=== PATIENT | male | born 1980 | race Caucasian/White ===

== ENCOUNTER 2021-01-04 16:54 | Emergency (ER) | payer SELFPAY ==
[~2021-01-04] VITALS: Ht 188 cm; Wt 143.2 kg
[2021-01-04] MEDS ORDERED: ketorolac tromethamine 15mg/ml inj. IM ONE (18:30)
[2021-01-04] MEDS ORDERED: cyclobenzaprine 10mg tablet PO ONE (18:45)
[2021-01-04] MEDS ORDERED: IBUP-1984 PO (19:19)
[2021-01-04] MEDS ORDERED: CYCL-1 PO (19:19)
[2021-01-04 20:03] VITALS: BP 139/95
== END 2021-01-04 20:02 | disposition home or self-care (01) ==
LOC: ER 16:55
DX: S00.83XA Contusion of other part of head, initial encounter (principal); M54.2 Cervicalgia; M25.552 Pain in left hip; M25.512 Pain in left shoulder; V49.59XA Passenger injured in collision with other motor vehicles in traffic accident, initial encounter; Y93.89 Activity, other specified; Y92.413 State road as the place of occurrence of the external cause; Y99.9 Unspecified external cause status
CPT/HCPCS: 70450; 72125; 73502; 96372; 99285; J1885

== ENCOUNTER 2021-01-11 18:12 | Inpatient (IN) | payer MEDICAID, OTHER ==
[~2021-01-11] VITALS: Ht 188 cm; Wt 136.4 kg
[~2021-01-11 18:12] MED LIST: CYCL-1 PO
[2021-01-11] MEDS ORDERED: normal saline 1000ML IV soln IVB ONE ×2 (18:35→22:15)
[2021-01-11] MEDS ORDERED: aspirin 81mg tab.chew PO ONE (18:35)
[2021-01-11] MEDS ORDERED: LORazepam 1 MG tablet PO ONE (18:40)
[2021-01-11] MEDS ORDERED: magnesium 2GM in 50ml NS 50 ML IV ONE (18:40)
[2021-01-11] MEDS ORDERED: LORazepam 2 mg/ml vial IV ONE ×2 (18:40→19:10)
--- NOTE | 2021-01-11 19:12 | NUR ---
patient was given a total of 2mg IV from one bottle ( original order was for 1 mg but md mcnally changed his mine and 2mg was given. Witness by second nurse Lilliam PARSON Ativan not given.
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
[2021-01-11 19:13] LABS: BASOPHILS # (AUTO) 0.1 X10'3 (0-0.2); BASOPHILS % (AUTO) 0.5 % (0-1); EOSINOPHILS % (AUTO) 0.1 % (0-6); HEMATOCRIT 35.7 % (42.0-52.0); HEMOGLOBIN 12.1 g/dl (14.0-17.9); LYMPHOCYTES # (AUTO) 1.7 X10'3 (1.1-4.8); LYMPHOCYTES % (AUTO) 9.3 % (21-51); MEAN CORPUSCULAR HEMOGLOBIN 29.4 PG (27.0-31.0); MEAN CORPUSCULAR HGB CONC 33.8 g/dL (33.0-36.5); MEAN PLATELET VOLUME 9.3 FL (7.4-10.4); MONOCYTES # (AUTO) 0.9 X10'3 (0-0.9); MONOCYTES % (AUTO) 5.2 % (2-12); NEUTROPHILS # (AUTO) 15.1 X10'3 (1.8-7.7); NEUTROPHILS % (AUTO) 84.9 % (42-75); PLATELET COUNT 292 X10'3 (140-440); RED CELL DISTRIBUTION WIDTH 15.3 % (11.5-14.5); WHITE BLOOD COUNT 17.7 X10'3 (4.5-11.0)
[2021-01-11 19:15] LABS: PARTIAL THROMBOPLASTIN TIME 22 SECONDS (22-32)
[2021-01-11 19:22] LABS: ALANINE AMINOTRANSFERASE 125 U/L (12-78); ALBUMIN 3.6 G/DL (3.4-5.0); ALBUMIN/GLOBULIN RATIO 1.2 (1.1-1.5); ALKALINE PHOSPHATASE 75 IU/L (46-116); ANION GAP 12 (8-16); ASPARTATE AMINO TRANSFERASE 47 U/L (10-37); BILIRUBIN,TOTAL 1.7 MG/DL (0.1-1.0); BLOOD UREA NITROGEN 39 MG/DL (7-18); BUN/CREATININE RATIO 35.1 (5.4-32.0); CALCIUM 8.2 MG/DL (8.5-10.1); CHLORIDE 105 MMOL/L (99-107); CREATININE 1.11 MG/DL (0.60-1.10); GLUCOSE 153 MG/DL (70-104); POTASSIUM 4.3 MMOL/L (3.5-5.1); SODIUM 141 MMOL/L (135-145); TOTAL CARBON DIOXIDE 24.1 MMOL/L (24-32); TOTAL PROTEIN 6.7 G/DL (6.4-8.2); eGFR 74 ML/MIN
[2021-01-11 19:31] LABS: ETHANOL < 0.010 GM/DL (0.0-0.010); MAGNESIUM 1.5 MG/DL (1.5-2.4)
[2021-01-11] MEDS ORDERED: nitroGLYCERIN 0.4mg/hour patch TD ONE (21:05)
--- NOTE | 2021-01-11 21:26 | NUR ---
MD NOTIFIED X2 ABOUT PATIENT PAIN, NITRO PATCH ORDERED AND GIVEN.
[2021-01-11] MEDS ORDERED: ondansetron/PF 4mg/2ml inj IV PRN (22:10)
[2021-01-11] MEDS ORDERED: mag hydrox/Alum hydrox/simeth 30ml oral suspension PO PRN ×2 (22:10→23:55)
[2021-01-11] MEDS ORDERED: potassium Cl 20 mEq SR tablet PO PRN ×2 (22:10)
[2021-01-11] MEDS ORDERED: magnesium 2GM in 50ml NS 50 ML IV PRN (22:10)
[2021-01-11] MEDS ORDERED: acetaminophen 325mg tablet PO PRN ×2 (22:10)
[2021-01-11] MEDS ORDERED: magnesium 4gm in 100ml NS 100 ML IV PRN (22:10)
[2021-01-11] MEDS ORDERED: HYDROcodone/acetaminophen 5mg/325mg tablet PO PRN (22:10)
[2021-01-11] MEDS ORDERED: magnesium Cl slow-release 64mg tablet PO PRN (22:10)
[2021-01-11] MEDS ORDERED: magnesium hydroxide 30ml (MOM) UD suspension PO PRN (22:10)
[2021-01-11] MEDS ORDERED: potassium Cl 40MEQ/1/2NS 520ml 520 ML IV PRN ×2 (22:10)
[2021-01-11] MEDS: morphine 2 MG/ML inj. syringe IV PRN (22:29)
[2021-01-11] MEDS ORDERED: iohexol 350MG/ML 100ml bottle IV ONE (22:53)
[2021-01-11 23:08] LABS: CLARITY,URINE CLEAR (Clear); COLOR,URINE YELLOW (Yellow); GLUCOSE, URINE NEGATIVE (Neg); KETONES,URINE NEGATIVE (Neg); LEUKOCYTE ESTERASE ,URINE NEGATIVE (Neg); NITRITES, URINE NEGATIVE (Neg); OCCULT BLOOD,URINE NEGATIVE (Neg); PROTEIN,URINE NEGATIVE (Neg); UROBILINOGEN,URINE 0.2 E.U/dL (0.2-1.0)
[2021-01-11] MEDS ORDERED: nicotine 14mg patch - 24hr TD ONE (23:10)
[2021-01-11] MEDS ORDERED: thiamine inj. 100 MG in normal saline 100ml IV soln 100 ML IV ONE ×2 (23:10→23:55)
[2021-01-11 23:16] LABS: UA COLLECTION TYPE URINAL; URINE AMPHETAMINE SCREEN NEGATIVE (Neg); URINE BARBITUATE SCREEN NEGATIVE (Neg); URINE BENZODIAZEPINES SCREEN NEGATIVE (Neg); URINE CANNABINOID SCREEN NEGATIVE (Neg); URINE COCAINE SCREEN NEGATIVE (Neg); URINE METHADONE SCREEN NEGATIVE (Neg); URINE OPIATE SCREEN NEGATIVE (Neg); URINE PHENCYCLIDINE SCREEN NEGATIVE (Neg)
[2021-01-11] MEDS ORDERED: loperamide 2mg capsule PO ONE (23:55)
[2021-01-11] MEDS ORDERED: dicyclomine 10 MG capsule PO PRN (23:55)
[2021-01-11] MEDS ORDERED: cloNIDine 0.1 mg tablet PO PRN (23:55)
[2021-01-11] MEDS ORDERED: loperamide 2mg capsule PO PRN (23:55)
[2021-01-11] MEDS ORDERED: LORazepam 1 MG tablet PO PRN (23:55)
[2021-01-11] MEDS ORDERED: haloperidol 5mg tablet PO PRN ×2 (23:55)
[2021-01-11] MEDS ORDERED: cloNIDine 0.1 MG/24 HOUR patch (7 day patch) TD SCH (23:55)
[2021-01-11] MEDS ORDERED: cyclobenzaprine 10mg tablet PO PRN (23:55)
[2021-01-11] MEDS ORDERED: haloperidol lactate 5mg/ml inj IM PRN ×3 (23:55)
[2021-01-11] MEDS ORDERED: LORazepam 2 mg/ml vial IV PRN ×2 (23:55)
[2021-01-12] MEDS: LORazepam 2 mg/ml vial IV PRN ×5 (00:27→10:41)
[2021-01-12] MEDS: HYDROcodone/acetaminophen 10/325mg tab PO PRN ×3 (00:28→10:41)
[2021-01-12 01:27] LABS: ALANINE AMINOTRANSFERASE 96 U/L (12-78); ALBUMIN/GLOBULIN RATIO 1.2 (1.1-1.5); ALKALINE PHOSPHATASE 64 IU/L (46-116); AMYLASE 23 U/L (25-115); ANION GAP 10 (8-16); ASPARTATE AMINO TRANSFERASE 35 U/L (10-37); BILIRUBIN,TOTAL 1.1 MG/DL (0.1-1.0); BLOOD UREA NITROGEN 35 MG/DL (7-18); CALCIUM 7.2 MG/DL (8.5-10.1); CHLORIDE 109 MMOL/L (99-107); CREATININE 0.92 MG/DL (0.60-1.10); GLUCOSE 119 MG/DL (70-104); LIPASE < 50 U/L (73-393); MAGNESIUM 1.8 MG/DL (1.5-2.4); PHOSPHORUS 3.4 MG/DL (2.3-4.5); POTASSIUM 3.8 MMOL/L (3.5-5.1); SODIUM 141 MMOL/L (135-145); TOTAL CARBON DIOXIDE 22.5 MMOL/L (24-32); TOTAL PROTEIN 5.5 G/DL (6.4-8.2); eGFR > 90 ML/MIN
[2021-01-12 01:28] LABS: BASOPHILS # (AUTO) 0.1 X10'3 (0-0.2); BASOPHILS % (AUTO) 0.5 % (0-1); EOSINOPHILS % (AUTO) 0.3 % (0-6); HEMATOCRIT 28.2 % (42.0-52.0); HEMOGLOBIN 9.5 g/dl (14.0-17.9); LYMPHOCYTES # (AUTO) 2.3 X10'3 (1.1-4.8); LYMPHOCYTES % (AUTO) 18.9 % (21-51); MEAN CORPUSCULAR HEMOGLOBIN 28.6 PG (27.0-31.0); MEAN CORPUSCULAR HGB CONC 33.6 g/dL (33.0-36.5); MEAN CORPUSCULAR VOLUME 85.3 FL (78-98); MEAN PLATELET VOLUME 9.1 FL (7.4-10.4); MONOCYTES # (AUTO) 0.8 X10'3 (0-0.9); MONOCYTES % (AUTO) 6.8 % (2-12); NEUTROPHILS % (AUTO) 73.5 % (42-75); PLATELET COUNT 226 X10'3 (140-440); WHITE BLOOD COUNT 12.3 X10'3 (4.5-11.0)
[2021-01-12] MEDS: morphine 2 MG/ML inj. syringe IV PRN (02:31)
--- NOTE | 2021-01-12 03:00 | NUR ---
patient had diarrhea, patient able to walk to restroom with standby assist.
--- NOTE | 2021-01-12 03:51 | NUR ---
patient actively in DT, med aware, see mar.
--- NOTE | 2021-01-12 05:38 | NUR ---
patient highly medicated, unable to recall what meds he takes and dosages.
[2021-01-12] MEDS ORDERED: pantoprazole 40mg Tablet.DR PO SCH (07:30)
[2021-01-12] MEDS ORDERED: enoxaparin 40mg/0.4ml syringe SUBCUT SCH (08:00)
[2021-01-12] MEDS ORDERED: nicotine 21mg patch - 24 hr TD SCH (08:00)
[2021-01-12] MEDS ORDERED: folic acid inj. 2 MG, thiamine inj. 100 MG, MVI, adult No.4 with vit. K 10 ML in dextro... IV SCH ×8 (08:00)
[2021-01-12] MEDS ORDERED: atenolol 50mg tablet PO SCH (08:00)
[2021-01-12] MEDS ORDERED: K and/or MAG REPLACEMENT MC SCH (08:00)
[2021-01-12] MEDS ORDERED: thiamine 100mg tablet PO SCH (08:00)
[2021-01-12] MEDS ORDERED: multivitamins, therapeutics tablet PO SCH (08:00)
[2021-01-12] MEDS ORDERED: folic acid 1mg tablet PO SCH (08:00)
--- NOTE | 2021-01-12 11:45 | NUR ---
PATIENT AMBULATED TO BATHROOM UNASSISTED. REPORTS BM.
[2021-01-12 13:09] VITALS: BP 131/86
[2021-01-13] MEDS ORDERED: NO HOME MEDS (14:53)
[2021-01-13] MEDS ORDERED: LORazepam 2 mg/ml vial IV PRN (23:55)
[2021-01-13] MEDS ORDERED: LORazepam 1 MG tablet PO PRN (23:55)
[2021-01-15] MEDS ORDERED: MULT-25 PO (16:57)
[2021-01-15] MEDS ORDERED: PANT40TA54 PO (16:57)
[2021-01-15] MEDS ORDERED: NICO-687 TD (16:57)
[2021-01-15] MEDS ORDERED: folic acid tablet PO (16:57)
[2021-01-15] MEDS ORDERED: thiamine tablet PO (16:57)
[2021-01-15] MEDS ORDERED: FERR324T4 PO (17:14)
[2021-01-15] MEDS ORDERED: LORazepam 1 MG tablet PO PRN (23:55)
[2021-01-15] MEDS ORDERED: LORazepam 2 mg/ml vial IV PRN (23:55)
== END 2021-01-12 13:12 | disposition left against medical advice (07) | DRG 770 ==
LOC: ER 18:13 → ED HOLD 22:09 → UNDOADMIN 22:20
PROVIDERS: ADMIT Internal Medicine; ATTEND Internal Medicine
PROC: B32T1ZZ Computerized Tomography (CT Scan) of Left Pulmonary Artery using Low Osmolar Contrast (ICD-10-PCS; principal; 2021-01-11)
PROC: B3201ZZ Computerized Tomography (CT Scan) of Thoracic Aorta using Low Osmolar Contrast (ICD-10-PCS; 2021-01-11)
PROC: B32S1ZZ Computerized Tomography (CT Scan) of Right Pulmonary Artery using Low Osmolar Contrast (ICD-10-PCS; 2021-01-11)
DX: F10.239 Alcohol dependence with withdrawal, unspecified (principal); E66.01 Morbid (severe) obesity due to excess calories; R55 Syncope and collapse; R07.89 Other chest pain; Z53.29 Procedure and treatment not carried out because of patient's decision for other reasons; R00.0 Tachycardia, unspecified; F17.210 Nicotine dependence, cigarettes, uncomplicated; Z80.0 Family history of malignant neoplasm of digestive organs; Z82.3 Family history of stroke; Z68.38 Body mass index [BMI] 38.0-38.9, adult; Z90.49 Acquired absence of other specified parts of digestive tract; Z79.899 Other long term (current) drug therapy
CPT/HCPCS: 36415; 71045; 71275; 80053; 80305; 80320; 81003; 82150; 82948; 83690; 83735; 84100; 84443; 84484; 85025; 85610; 85730; 87081; 93005; 93306; 96374; 96375; 96376; 99285; G0378; J1650; J2060; J2270; J2405; J3411; J3475; J7030; Q9967

== ENCOUNTER 2021-01-16 15:47 | Emergency (ER) | payer MEDICAID ==
[~2021-01-16] VITALS: Ht 188 cm; Wt 134.0 kg
[~2021-01-16 15:47] MED LIST changes: -CYCL-1 PO; +FERR324T4 PO; +MULT-25 PO; +NICO-687 TD; +PANT40TA54 PO; +folic acid tablet PO; +thiamine tablet PO
--- NOTE | 2021-01-16 16:17 | NUR ---
DR DUTTON EVALUATED PT
[2021-01-16 16:59] LABS: BASOPHILS % (AUTO) 0.3 % (0-1); EOSINOPHILS # (AUTO) 0.1 X10'3 (0-0.9); EOSINOPHILS % (AUTO) 0.9 % (0-6); HEMATOCRIT 27.4 % (42.0-52.0); HEMOGLOBIN 9.3 g/dl (14.0-17.9); LYMPHOCYTES # (AUTO) 0.8 X10'3 (1.1-4.8); LYMPHOCYTES % (AUTO) 7.9 % (21-51); MEAN CORPUSCULAR HEMOGLOBIN 31.1 PG (27.0-31.0); MEAN CORPUSCULAR VOLUME 91.5 FL (78-98); MONOCYTES # (AUTO) 0.6 X10'3 (0-0.9); NEUTROPHILS # (AUTO) 8.4 X10'3 (1.8-7.7); NEUTROPHILS % (AUTO) 84.9 % (42-75); PLATELET COUNT 236 X10'3 (140-440); RED BLOOD COUNT 2.99 X10'6 (4.70-6.10); RED CELL DISTRIBUTION WIDTH 16.1 % (11.5-14.5); WHITE BLOOD COUNT 9.9 X10'3 (4.5-11.0)
[2021-01-16 17:11] LABS: PARTIAL THROMBOPLASTIN TIME 22 SECONDS (22-32)
[2021-01-16 17:12] LABS: ALANINE AMINOTRANSFERASE 45 U/L (12-78); ALBUMIN 3.2 G/DL (3.4-5.0); ALKALINE PHOSPHATASE 55 IU/L (46-116); ANION GAP 10 (8-16); ASPARTATE AMINO TRANSFERASE 32 U/L (10-37); BILIRUBIN,TOTAL 0.3 MG/DL (0.1-1.0); BLOOD UREA NITROGEN 14 MG/DL (7-18); BUN/CREATININE RATIO 15.4 (5.4-32.0); CALCIUM 8.2 MG/DL (8.5-10.1); CHLORIDE 105 MMOL/L (99-107); CREATININE 0.91 MG/DL (0.60-1.10); GLUCOSE 95 MG/DL (70-104); POTASSIUM 3.8 MMOL/L (3.5-5.1); SODIUM 141 MMOL/L (135-145); TOTAL CARBON DIOXIDE 25.9 MMOL/L (24-32); TOTAL PROTEIN 6.5 G/DL (6.4-8.2); eGFR > 90 ML/MIN
[2021-01-16] MEDS ORDERED: ondansetron/PF 4mg/2ml inj IV ONE (18:50)
[2021-01-16] MEDS ORDERED: normal saline 1000ML IV soln IVB ONE (18:50)
[2021-01-16] MEDS ORDERED: morphine 4 MG/ML inj SYRINge IV PRN (18:50)
[2021-01-16] MEDS ORDERED: sucralfate 1gm/10ml UD suspension PO STA (19:36)
[2021-01-16] MEDS ORDERED: LIDOcaine Viscous 15ml cup MM ONE (19:40)
[2021-01-16] MEDS ORDERED: mag hydrox/Alum hydrox/simeth 30ml oral suspension PO ONE (19:40)
[2021-01-16] MEDS ORDERED: DEXL60CA3 PO (19:43)
[2021-01-16 19:53] LABS: CLARITY,URINE CLEAR (Clear); COLOR,URINE YELLOW (Yellow); GLUCOSE, URINE NEGATIVE (Neg); KETONES,URINE NEGATIVE (Neg); LEUKOCYTE ESTERASE ,URINE NEGATIVE (Neg); NITRITES, URINE NEGATIVE (Neg); OCCULT BLOOD,URINE NEGATIVE (Neg); PROTEIN,URINE NEGATIVE (Neg); UROBILINOGEN,URINE 0.2 E.U/dL (0.2-1.0)
[2021-01-16 20:01] LABS: UA COLLECTION TYPE CLN CATCH MIDSTREAM
--- NOTE | 2021-01-16 20:18 | NUR ---
PATIENT AND RECEIVED DISCHARGE INSTUCTIONS/ PRESCRIPTIONS AND ACKNOWLEDGED UNDERSTANDING. PATIENT STATES THAT HE FEELS ALOT BETTER. VS WNL.
[2021-01-16 20:19] VITALS: BP 122/97
== END 2021-01-16 20:19 | disposition home or self-care (01) ==
LOC: ER 15:48
DX: R10.10 Upper abdominal pain, unspecified (principal); R42 Dizziness and giddiness; R53.1 Weakness; R53.83 Other fatigue; M54.9 Dorsalgia, unspecified; K74.60 Unspecified cirrhosis of liver; Z90.49 Acquired absence of other specified parts of digestive tract; F12.90 Cannabis use, unspecified, uncomplicated; F14.90 Cocaine use, unspecified, uncomplicated; Z98.84 Bariatric surgery status; Z72.89 Other problems related to lifestyle; Z79.899 Other long term (current) drug therapy
CPT/HCPCS: 36415; 80053; 81003; 85025; 85610; 85730; 86885; 86900; 86901; 93005; 96361; 96374; 96375; 99284; J2270; J2405; J7030

== ENCOUNTER 2021-03-20 18:10 | Emergency (ER) | payer MEDICAID ==
[~2021-03-20] VITALS: Ht 188 cm; Wt 134.1 kg
[~2021-03-20 18:10] MED LIST changes: +DEXL60CA3 PO
[2021-03-20] MEDS ORDERED: LORazepam 1 MG tablet PO ONE (20:35)
[2021-03-20] MEDS ORDERED: normal saline 1000ML IV soln IVB ONE (20:35)
[2021-03-20] MEDS ORDERED: ondansetron 4mg rapidly disintigrating tab PO ONE (20:35)
[2021-03-20] MEDS ORDERED: acetaminophen 325mg tablet PO ONE (20:35)
[2021-03-20 21:12] LABS: BASOPHILS # (AUTO) 0.1 X10'3 (0-0.2); EOSINOPHILS # (AUTO) 0.1 X10'3 (0-0.9); EOSINOPHILS % (AUTO) 0.7 % (0-6); HEMATOCRIT 34.3 % (42.0-52.0); HEMOGLOBIN 11.4 g/dl (14.0-17.9); LYMPHOCYTES # (AUTO) 1.3 X10'3 (1.1-4.8); LYMPHOCYTES % (AUTO) 14.9 % (21-51); MEAN CORPUSCULAR HEMOGLOBIN 23.9 PG (27.0-31.0); MEAN CORPUSCULAR HGB CONC 33.4 g/dL (33.0-36.5); MEAN CORPUSCULAR VOLUME 71.6 FL (78-98); MEAN PLATELET VOLUME 8.1 FL (7.4-10.4); MONOCYTES # (AUTO) 0.7 X10'3 (0-0.9); MONOCYTES % (AUTO) 8.8 % (2-12); NEUTROPHILS # (AUTO) 6.3 X10'3 (1.8-7.7); NEUTROPHILS % (AUTO) 74.6 % (42-75); PLATELET COUNT 315 X10'3 (140-440); RED BLOOD COUNT 4.78 X10'6 (4.70-6.10); RED CELL DISTRIBUTION WIDTH 21.7 % (11.5-14.5); WHITE BLOOD COUNT 8.4 X10'3 (4.5-11.0)
[2021-03-20 21:19] LABS: PARTIAL THROMBOPLASTIN TIME 27 SECONDS (22-32)
[2021-03-20 21:50] LABS: ALANINE AMINOTRANSFERASE 91 U/L (12-78); ALBUMIN 3.8 G/DL (3.4-5.0); ALBUMIN/GLOBULIN RATIO 1.1 (1.1-1.5); ALKALINE PHOSPHATASE 86 IU/L (46-116); ANION GAP 15 (8-16); ASPARTATE AMINO TRANSFERASE 123 U/L (10-37); BILIRUBIN,TOTAL 0.3 MG/DL (0.1-1.0); BLOOD UREA NITROGEN 27 MG/DL (7-18); BUN/CREATININE RATIO 22.7 (5.4-32.0); CALCIUM 8.6 MG/DL (8.5-10.1); CHLORIDE 105 MMOL/L (99-107); CREATININE 1.19 MG/DL (0.60-1.10); ETHANOL 0.096 GM/DL (0.0-0.010); GLUCOSE 114 MG/DL (70-104); POTASSIUM 4.4 MMOL/L (3.5-5.1); SODIUM 142 MMOL/L (135-145); TOTAL CARBON DIOXIDE 22.4 MMOL/L (24-32); TOTAL PROTEIN 7.3 G/DL (6.4-8.2); eGFR 68 ML/MIN
[2021-03-20 22:05] LABS: ANISOCYTOSIS 3+; MICROCYTOSIS 1+; PLATELET ESTIMATE NORMAL
[2021-03-20 22:31] LABS: AMYLASE 43 U/L (25-115)
[2021-03-20] MEDS ORDERED: LORazepam 2 mg/ml vial IV ONE ×2 (22:35→23:50)
[2021-03-20] MEDS ORDERED: GABA-534 PO (22:56)
[2021-03-20] MEDS ORDERED: ONDA4TAB12 PO (23:27)
[2021-03-21 00:05] VITALS: BP 119/78
== END 2021-03-21 00:06 | disposition home or self-care (01) ==
LOC: ER 18:11
DX: F10.239 Alcohol dependence with withdrawal, unspecified (principal); R11.2 Nausea with vomiting, unspecified; R19.7 Diarrhea, unspecified; R10.11 Right upper quadrant pain; F17.200 Nicotine dependence, unspecified, uncomplicated; F12.90 Cannabis use, unspecified, uncomplicated; F14.90 Cocaine use, unspecified, uncomplicated; Z90.49 Acquired absence of other specified parts of digestive tract; Z98.890 Other specified postprocedural states; Z72.89 Other problems related to lifestyle; Z79.899 Other long term (current) drug therapy; Y90.0 Blood alcohol level of less than 20 mg/100 ml
CPT/HCPCS: 36415; 80053; 80320; 82150; 85008; 85025; 85610; 85730; 93005; 96361; 96374; 96376; 99285; J2060; J7030

== ENCOUNTER 2021-03-27 13:53 | Emergency (ER) | payer MEDICAID ==
[~2021-03-27] VITALS: Ht 188 cm; Wt 136.4 kg
[~2021-03-27 13:53] MED LIST changes: +GABA-534 PO; +ONDA4TAB12 PO
[2021-03-27] MEDS ORDERED: ondansetron 4mg rapidly disintigrating tab PO ONE (15:40)
[2021-03-27] MEDS ORDERED: ringers solution, lactated 1000ml IV soln IV ONE ×3 (15:40→19:10)
[2021-03-27 15:41] LABS: BASOPHILS # (AUTO) 0.1 X10'3 (0-0.2); MONOCYTES # (AUTO) 0.6 X10'3 (0-0.9)
[2021-03-27 15:44] LABS: EOSINOPHILS % (AUTO) 0.4 % (0-6); HEMATOCRIT 40.5 % (42.0-52.0); HEMOGLOBIN 13.1 g/dl (14.0-17.9); LYMPHOCYTES % (AUTO) 12.2 % (21-51); MEAN CORPUSCULAR HEMOGLOBIN 23.2 PG (27.0-31.0); MEAN CORPUSCULAR HGB CONC 32.3 g/dL (33.0-36.5); MEAN CORPUSCULAR VOLUME 71.9 FL (78-98); MEAN PLATELET VOLUME 8.5 FL (7.4-10.4); MONOCYTES % (AUTO) 7.6 % (2-12); NEUTROPHILS # (AUTO) 6.3 X10'3 (1.8-7.7); NEUTROPHILS % (AUTO) 78.8 % (42-75); PLATELET COUNT 390 X10'3 (140-440); RED BLOOD COUNT 5.64 X10'6 (4.70-6.10); WHITE BLOOD COUNT 7.9 X10'3 (4.5-11.0)
[2021-03-27 15:49] LABS: ALANINE AMINOTRANSFERASE 308 U/L (12-78); ALBUMIN 4.2 G/DL (3.4-5.0); ALKALINE PHOSPHATASE 96 IU/L (46-116); ANION GAP 15 (8-16); ASPARTATE AMINO TRANSFERASE 382 U/L (10-37); BILIRUBIN,TOTAL 0.9 MG/DL (0.1-1.0); BLOOD UREA NITROGEN 25 MG/DL (7-18); BUN/CREATININE RATIO 19.1 (5.4-32.0); CALCIUM 8.9 MG/DL (8.5-10.1); CHLORIDE 102 MMOL/L (99-107); CREATININE 1.31 MG/DL (0.60-1.10); GLUCOSE 121 MG/DL (70-104); LIPASE 76 U/L (73-393); MAGNESIUM 1.7 MG/DL (1.5-2.4); SODIUM 139 MMOL/L (135-145); TOTAL CARBON DIOXIDE 22.5 MMOL/L (24-32); TOTAL PROTEIN 8.4 G/DL (6.4-8.2); eGFR 61 ML/MIN
[2021-03-27 15:51] LABS: POTASSIUM 4.7 MMOL/L (3.5-5.1)
[2021-03-27] MEDS ORDERED: LORazepam 2 mg/ml vial IV ONE ×4 (15:55→19:55)
[2021-03-27 17:07] LABS: PLATELET ESTIMATE NORMAL
[2021-03-27 17:08] LABS: ANISOCYTOSIS 3+; HYPOCHROMASIA 1+; MICROCYTOSIS 1+
--- NOTE | 2021-03-27 17:55 | NUR ---
PATIENT REQUESTED FOR ADDITIONAL ATIVAN,MELANIA BISHOP MADE AWARE.
[2021-03-27] MEDS ORDERED: proCHLORperazine 10 MG/2 ml inj IV ONE (19:10)
[2021-03-27] MEDS ORDERED: GABA-534 PO (19:32)
[2021-03-27] MEDS ORDERED: ONDA8TAB13 PO (19:33)
[2021-03-27 21:02] VITALS: BP 119/85
== END 2021-03-27 21:05 | disposition home or self-care (01) ==
LOC: ER 13:53
DX: F10.239 Alcohol dependence with withdrawal, unspecified (principal); R42 Dizziness and giddiness; R11.0 Nausea; F12.90 Cannabis use, unspecified, uncomplicated; F14.90 Cocaine use, unspecified, uncomplicated; F19.90 Other psychoactive substance use, unspecified, uncomplicated; Z90.49 Acquired absence of other specified parts of digestive tract; Z72.89 Other problems related to lifestyle; Z98.890 Other specified postprocedural states; Z79.899 Other long term (current) drug therapy; Y90.9 Presence of alcohol in blood, level not specified
CPT/HCPCS: 36415; 80053; 83690; 83735; 85008; 85025; 96361; 96374; 96375; 96376; 99285; J0780; J2060; 93005; J7120

== ENCOUNTER 2021-04-26 08:22 | Emergency (ER) | payer MEDICAID ==
[~2021-04-26] VITALS: Ht 188 cm; Wt 140.9 kg
[~2021-04-26 08:22] MED LIST changes: +ONDA8TAB13 PO
[2021-04-26 09:46] LABS: CLARITY,URINE SLIGHTLY CLOUDY (Clear); COLOR,URINE YELLOW (Yellow); GLUCOSE, URINE NEGATIVE (Neg); KETONES,URINE NEGATIVE (Neg); LEUKOCYTE ESTERASE ,URINE NEGATIVE (Neg); NITRITES, URINE NEGATIVE (Neg); OCCULT BLOOD,URINE NEGATIVE (Neg); PROTEIN,URINE NEGATIVE (Neg); UA COLLECTION TYPE VOIDED; UROBILINOGEN,URINE 0.2 E.U/dL (0.2-1.0)
[2021-04-26 09:54] LABS: MUCUS STRANDS FEW /LPF (Neg); SQUAMOUS EPITHELIAL CELL,UR FEW /LPF (FEW)
[2021-04-26 09:56] LABS: BACTERIA,URINE FEW /HPF (Neg); RBC,URINE NONE SEEN /HPF (0-2); WBC,URINE 0-4 /HPF (0-4)
[2021-04-26 10:33] LABS: BASOPHILS # (AUTO) 0.1 X10'3 (0-0.2); BASOPHILS % (AUTO) 0.8 % (0-1); EOSINOPHILS # (AUTO) 0.1 X10'3 (0-0.9); EOSINOPHILS % (AUTO) 0.4 % (0-6); HEMATOCRIT 38.1 % (42.0-52.0); HEMOGLOBIN 12.1 g/dl (14.0-17.9); LYMPHOCYTES % (AUTO) 8.4 % (21-51); MEAN CORPUSCULAR HEMOGLOBIN 22.6 PG (27.0-31.0); MEAN CORPUSCULAR HGB CONC 31.8 g/dL (33.0-36.5); MEAN PLATELET VOLUME 8.9 FL (7.4-10.4); MONOCYTES # (AUTO) 0.8 X10'3 (0-0.9); MONOCYTES % (AUTO) 6.7 % (2-12); NEUTROPHILS # (AUTO) 9.9 X10'3 (1.8-7.7); NEUTROPHILS % (AUTO) 83.7 % (42-75); PLATELET COUNT 283 X10'3 (140-440); RED BLOOD COUNT 5.37 X10'6 (4.70-6.10); RED CELL DISTRIBUTION WIDTH 22.7 % (11.5-14.5); WHITE BLOOD COUNT 11.8 X10'3 (4.5-11.0)
[2021-04-26 10:44] LABS: ALANINE AMINOTRANSFERASE 267 U/L (12-78); ALBUMIN 4.3 G/DL (3.4-5.0); ALBUMIN/GLOBULIN RATIO 1.1 (1.1-1.5); ALKALINE PHOSPHATASE 130 IU/L (46-116); ANION GAP 15 (8-16); ASPARTATE AMINO TRANSFERASE 243 U/L (10-37); BILIRUBIN,TOTAL 1.4 MG/DL (0.1-1.0); BLOOD UREA NITROGEN 27 MG/DL (7-18); CALCIUM 9.1 MG/DL (8.5-10.1); CHLORIDE 99 MMOL/L (99-107); CREATININE 1.04 MG/DL (0.60-1.10); GLUCOSE 102 MG/DL (70-104); POTASSIUM 3.7 MMOL/L (3.5-5.1); SODIUM 134 MMOL/L (135-145); TOTAL CARBON DIOXIDE 20.1 MMOL/L (24-32); TOTAL PROTEIN 8.2 G/DL (6.4-8.2); eGFR 80 ML/MIN
[2021-04-26 10:48] LABS: AMYLASE 55 U/L (25-115); LIPASE 213 U/L (73-393)
[2021-04-26 11:49] LABS: HYPOCHROMASIA 1+; PLATELET ESTIMATE NORMAL; POLYCHROMASIA FEW
[2021-04-26 11:50] LABS: STOMATOCYTES 2+
[2021-04-26] MEDS ORDERED: normal saline 1000ML IV soln IVB ONE (14:15)
[2021-04-26] MEDS ORDERED: LORazepam 2 mg/ml vial IV ONE (14:15)
[2021-04-26] MEDS ORDERED: ondansetron/PF 4mg/2ml inj IV ONE (14:15)
[2021-04-26] MEDS ORDERED: famotidine/PF 10 mg/ml inj IV ONE (14:20)
[2021-04-26] MEDS ORDERED: morphine 4 MG/ML inj SYRINge IV ONE (14:20)
[2021-04-26 14:34] LABS: ETHANOL 0.034 GM/DL (0.0-0.010)
[2021-04-26] MEDS ORDERED: folic acid 1mg/0.2ml inj IV ONE (14:55)
[2021-04-26] MEDS ORDERED: thiamine 100mg/ml 2ml inj. IV ONE (14:55)
[2021-04-26] MEDS ORDERED: mag hydrox/Alum hydrox/simeth 30ml oral suspension PO ONE (15:05)
[2021-04-26] MEDS ORDERED: LIDOcaine Viscous 15ml cup MM ONE (15:05)
[2021-04-26] MEDS ORDERED: sucralfate 1gm/10ml UD suspension PO ONE (15:05)
[2021-04-26] MEDS ORDERED: sucralfate 1 gm tablet PO ONE (15:15)
[2021-04-26] MEDS ORDERED: PANT-47 PO (15:27)
[2021-04-26 17:45] VITALS: BP 166/101
== END 2021-04-26 17:40 | disposition home or self-care (01) ==
LOC: ER 08:23
DX: K29.20 Alcoholic gastritis without bleeding (principal)
CPT/HCPCS: 36415; 71045; 76700; 80053; 80320; 81001; 82150; 83690; 85008; 85025; 96361; 96374; 96375; 99285; J2060; J2270; J2405; J3411; J3490; J7030

== ENCOUNTER 2021-05-17 18:02 | Emergency (ER) | payer MEDICAID ==
[~2021-05-17] VITALS: Ht 188 cm; Wt 136.0 kg
[~2021-05-17 18:02] MED LIST changes: +PANT-47 PO
[2021-05-17 20:02] LABS: BASOPHILS # (AUTO) 0.1 X10'3 (0-0.2); BASOPHILS % (AUTO) 1.5 % (0-1); EOSINOPHILS # (AUTO) 0.1 X10'3 (0-0.9); EOSINOPHILS % (AUTO) 1.2 % (0-6); HEMATOCRIT 37.6 % (42.0-52.0); HEMOGLOBIN 12.2 g/dl (14.0-17.9); LYMPHOCYTES # (AUTO) 2.2 X10'3 (1.1-4.8); LYMPHOCYTES % (AUTO) 25.2 % (21-51); MEAN CORPUSCULAR HEMOGLOBIN 24.5 PG (27.0-31.0); MEAN CORPUSCULAR HGB CONC 32.6 g/dL (33.0-36.5); MEAN CORPUSCULAR VOLUME 75.2 FL (78-98); MEAN PLATELET VOLUME 7.6 FL (7.4-10.4); MONOCYTES # (AUTO) 0.5 X10'3 (0-0.9); MONOCYTES % (AUTO) 5.9 % (2-12); NEUTROPHILS # (AUTO) 5.7 X10'3 (1.8-7.7); NEUTROPHILS % (AUTO) 66.2 % (42-75); PLATELET COUNT 345 X10'3 (140-440); RED CELL DISTRIBUTION WIDTH 22.1 % (11.5-14.5); WHITE BLOOD COUNT 8.7 X10'3 (4.5-11.0)
[2021-05-17 20:05] LABS: CLARITY,URINE CLEAR (Clear); GLUCOSE, URINE NEGATIVE (Neg); KETONES,URINE NEGATIVE (Neg); LEUKOCYTE ESTERASE ,URINE NEGATIVE (Neg); NITRITES, URINE NEGATIVE (Neg); OCCULT BLOOD,URINE NEGATIVE (Neg); PROTEIN,URINE NEGATIVE (Neg); UROBILINOGEN,URINE 0.2 E.U/dL (0.2-1.0)
[2021-05-17 20:06] LABS: UA COLLECTION TYPE CLN CATCH MIDSTREAM
[2021-05-17 20:07] LABS: COLOR,URINE STRAW (Yellow)
[2021-05-17 20:16] LABS: ALANINE AMINOTRANSFERASE 54 U/L (12-78); ALBUMIN 4.5 G/DL (3.4-5.0); ALKALINE PHOSPHATASE 84 IU/L (46-116); ANION GAP 13 (8-16); ASPARTATE AMINO TRANSFERASE 45 U/L (10-37); BILIRUBIN,TOTAL 0.3 MG/DL (0.1-1.0); BLOOD UREA NITROGEN 14 MG/DL (7-18); BUN/CREATININE RATIO 13.7 (5.4-32.0); CHLORIDE 102 MMOL/L (99-107); CREATININE 1.02 MG/DL (0.60-1.10); GLUCOSE 106 MG/DL (70-104); LIPASE 99 U/L (73-393); POTASSIUM 4.2 MMOL/L (3.5-5.1); SODIUM 140 MMOL/L (135-145); TOTAL CARBON DIOXIDE 25.3 MMOL/L (24-32); TOTAL PROTEIN 9.1 G/DL (6.4-8.2); eGFR 81 ML/MIN
[2021-05-17 20:31] LABS: PLATELET ESTIMATE NORMAL
[2021-05-17 20:32] LABS: ANISOCYTOSIS 3+; MICROCYTOSIS 1+
[2021-05-17] MEDS ORDERED: normal saline 1000ml 1,000 ML IV ONE (22:15)
[2021-05-17] MEDS ORDERED: morphine 4 MG/ML inj SYRINge IV ONE (22:15)
[2021-05-17] MEDS ORDERED: ondansetron/PF 4mg/2ml inj IV ONE (22:15)
[2021-05-18] MEDS ORDERED: morphine 4 MG/ML inj SYRINge IV ONE (00:55)
[2021-05-18 01:09] VITALS: BP 129/87
[2021-05-19] MEDS ORDERED: DULO60CA59 PO (18:21)
== END 2021-05-18 01:32 | disposition home or self-care (01) ==
LOC: ER 18:02
DX: R10.11 Right upper quadrant pain (principal); R10.84 Generalized abdominal pain; R19.7 Diarrhea, unspecified; R11.10 Vomiting, unspecified; Z79.899 Other long term (current) drug therapy; Z90.49 Acquired absence of other specified parts of digestive tract; Z98.890 Other specified postprocedural states; Z98.84 Bariatric surgery status; Z72.89 Other problems related to lifestyle
CPT/HCPCS: 36415; 71045; 74176; 80053; 81003; 83690; 84484; 85008; 85025; 93005; 96361; 96374; 96375; 96376; 99285; J2270; J2405; J7030; 99284

== ENCOUNTER 2021-05-19 09:57 | Emergency (ER) | payer MEDICAID ==
[~2021-05-19] VITALS: Ht 190.5 cm; Wt 140.0 kg
[2021-05-19] MEDS ORDERED: ketorolac trometh. 30mg/ml inj. IM ONE (11:10)
[2021-05-19] MEDS ORDERED: LORazepam 1 MG tablet PO ONE ×2 (11:10→21:35)
[2021-05-19] MEDS ORDERED: acetaminophen 325mg tablet PO ONE ×2 (11:10→14:10)
[2021-05-19 11:28] LABS: BASOPHILS # (AUTO) 0.1 X10'3 (0-0.2); BASOPHILS % (AUTO) 1.2 % (0-1); EOSINOPHILS % (AUTO) 0.5 % (0-6); HEMATOCRIT 36.2 % (42.0-52.0); HEMOGLOBIN 11.6 g/dl (14.0-17.9); LYMPHOCYTES # (AUTO) 0.9 X10'3 (1.1-4.8); LYMPHOCYTES % (AUTO) 10.2 % (21-51); MEAN CORPUSCULAR HEMOGLOBIN 23.9 PG (27.0-31.0); MEAN CORPUSCULAR HGB CONC 32.1 g/dL (33.0-36.5); MEAN CORPUSCULAR VOLUME 74.7 FL (78-98); MEAN PLATELET VOLUME 7.1 FL (7.4-10.4); MONOCYTES # (AUTO) 0.3 X10'3 (0-0.9); MONOCYTES % (AUTO) 3.7 % (2-12); NEUTROPHILS # (AUTO) 7.1 X10'3 (1.8-7.7); NEUTROPHILS % (AUTO) 84.4 % (42-75); PLATELET COUNT 319 X10'3 (140-440); RED BLOOD COUNT 4.84 X10'6 (4.70-6.10); RED CELL DISTRIBUTION WIDTH 21.6 % (11.5-14.5); WHITE BLOOD COUNT 8.4 X10'3 (4.5-11.0)
[2021-05-19 11:41] LABS: ALANINE AMINOTRANSFERASE 41 U/L (12-78); ALBUMIN 4.1 G/DL (3.4-5.0); ALBUMIN/GLOBULIN RATIO 1.1 (1.1-1.5); ALKALINE PHOSPHATASE 82 IU/L (46-116); ANION GAP 9 (8-16); ASPARTATE AMINO TRANSFERASE 33 U/L (10-37); BILIRUBIN,TOTAL 0.2 MG/DL (0.1-1.0); BLOOD UREA NITROGEN 18 MG/DL (7-18); BUN/CREATININE RATIO 15.8 (5.4-32.0); CALCIUM 8.8 MG/DL (8.5-10.1); CHLORIDE 101 MMOL/L (99-107); CREATININE 1.14 MG/DL (0.60-1.10); GLUCOSE 99 MG/DL (70-104); SODIUM 136 MMOL/L (135-145); TOTAL CARBON DIOXIDE 26.3 MMOL/L (24-32); eGFR 72 ML/MIN
[2021-05-19 11:45] LABS: URINE AMPHETAMINE SCREEN NEGATIVE (Neg); URINE BARBITUATE SCREEN NEGATIVE (Neg); URINE BENZODIAZEPINES SCREEN NEGATIVE (Neg); URINE CANNABINOID SCREEN NEGATIVE (Neg); URINE COCAINE SCREEN NEGATIVE (Neg); URINE METHADONE SCREEN NEGATIVE (Neg); URINE OPIATE SCREEN POSITIVE (Neg); URINE PHENCYCLIDINE SCREEN NEGATIVE (Neg)
[2021-05-19 11:50] LABS: ANISOCYTOSIS 3+; ETHANOL 0.286 GM/DL (0.0-0.010); MICROCYTOSIS 1+; PLATELET ESTIMATE NORMAL
[2021-05-19 11:51] LABS: HYPOCHROMASIA 1+
--- NOTE | 2021-05-19 13:30 | NUR ---
Received patient from main ED to bed #27. Pt independently ambulated with PCT. Pt was calm, tearful.
[2021-05-19 13:32] LABS: CLARITY,URINE CLEAR (Clear); COLOR,URINE YELLOW (Yellow); GLUCOSE, URINE NEGATIVE (Neg); KETONES,URINE NEGATIVE (Neg); LEUKOCYTE ESTERASE ,URINE NEGATIVE (Neg); NITRITES, URINE NEGATIVE (Neg); OCCULT BLOOD,URINE NEGATIVE (Neg); PROTEIN,URINE NEGATIVE (Neg); UROBILINOGEN,URINE 0.2 E.U/dL (0.2-1.0)
[2021-05-19] MEDS ORDERED: LORazepam 1 MG tablet PO PRN (14:10)
--- NOTE | 2021-05-19 14:19 | NUR ---
Spoke with pt to assess mental stability. Pt is tearful during conversation stating "I've had so many losses I don't want to live anymore." Pt states he has lost both parents in the past year, his girlfriend kicked him out r/t recent relapse of ETOH. 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 Pt states he has been "sober" for years, but recently relapsed about 2-3 weeks ago. He has been drinking about 20 12oz beers a day since. Pt's CARRILLO was 0.286 and pt states his last drink was last night. Pt tox was positive for opiates, but pt states "I don't take opiates." Pt has some tremors and states "I'm hearing voices in my head." Pt c/o abdominal pain 01/20 with a history of pancreatitis. Received order from Dr. Castañeda for Ativan 2mg and Tylenol 650mg and Lipase will be drawn. Will continue to monitor Addendum: 05/20/21 at 0330 by LORRI Pt reports Ativan 1mg TID as a home medication.
[2021-05-19 14:26] LABS: UA COLLECTION TYPE VOIDED
[2021-05-19 14:35] LABS: LIPASE 65 U/L (73-393)
--- NOTE | 2021-05-19 16:00 | NUR ---
Pt resting comfortably, respirations even and unlabored.
--- NOTE | 2021-05-19 16:15 | NUR ---
FAXED PACKET TO [facility].
--- NOTE | 2021-05-19 16:58 | NUR ---
Pt resting comfortably, respirations even and unlabored.
[2021-05-19] MEDS ORDERED: DULO60CA59 PO (18:21)
--- NOTE | 2021-05-19 18:30 | NUR ---
Pt called engineering writer to bedside continues to c/o anxiety, pt is restless and distraught r/t his ETOH relapse. Pt again is tearful states he lost both his parents early 2020. Pt's PRN Ativan wasn't due for a couple more hours. Pt has a history of ETOH abuse. Received order from Dr. Meyers for IV Phenobarbital 260mg/100ml solution, NS 2000mL, Mag ox and thiamine. Will continue to monitor increased anxiety.
[2021-05-19] MEDS ORDERED: normal saline 1000ML IV soln IVB ONE (18:50)
[2021-05-19] MEDS ORDERED: magnesium oxide 400mg tablet PO ONE (18:50)
[2021-05-19] MEDS ORDERED: thiamine 100mg tablet PO ONE (18:50)
[2021-05-19] MEDS ORDERED: phenobarbital inj 260 MG in normal saline 100ml IV soln 100 ML IV ONE (18:50)
--- NOTE | 2021-05-19 21:21 | NUR ---
Pt has finished all IV medications and continues to be restless and tearful. Pt states "I have lost everything." Will continue to monitor and consult with doctor. Addendum: 05/19/21 at 2143 by LORRI Received order for Ativan [address] Meyers putting in order for another round of Phenobarbitol.
--- NOTE | 2021-05-19 21:30 | NUR ---
Administered Ativan 1mg for anxiety. Will continue to monitor.
--- NOTE | 2021-05-19 22:25 | NUR ---
Pt appears to be sleeping, respirations even and unlabored. No restless movements noted.
--- NOTE | 2021-05-19 23:48 | NUR ---
Pt continues to sleep, audible snoring noises noted. No restless movements, repirations even and unlabored.
--- NOTE | 2021-05-20 01:30 | NUR ---
Pt sleeping comfortably, audible snoring sounds noted. Respirations even and unlabored.
--- NOTE | 2021-05-20 03:41 | NUR ---
Pt sleeping comfortably in low madden's position, respirations even and unlabored. No restless movements noted.
[2021-05-20] MEDS ORDERED: gabapentin 300mg capsule PO ONE (04:35)
[2021-05-20] MEDS ORDERED: chlordiazePOXIDE 25mg capsule PO ONE ×2 (06:40→19:05)
--- NOTE | 2021-05-20 07:00 | NUR ---
Received Pt in bed sleeping w/o distress. Pt woke and asked for the phone and was told he can use it at 0800, which he accepted well. Pt reports feeling depressed and states he has had many losses recently. Pt cooperative and returned to sleep.
[2021-05-20] MEDS: duloxetine 30mg CAPSULE.DR PO SCH (07:46)
--- NOTE | 2021-05-20 09:29 | NUR ---
Pt woke and ate breakfast. This RN consulted with MD and pt given AM med and once dose of librium. Pt met with [facility] clinician. Pt reports anxiety and intermitent nausea. He returned to resting/sleep.
[2021-05-20] MEDS ORDERED: LORazepam 1 MG tablet PO ONE (11:25)
--- NOTE | 2021-05-20 11:33 | NUR ---
Met with patient in regards to alcohol use and to see if patient wanted resources for treatment options. Patient would like to go to an inpatient rehab treatment facility. I gave patient number for [facility] and he is calling to start the process. I will continue to work with patient while he is here.
--- NOTE | 2021-05-20 11:40 | NUR ---
Pt anxious and c/o flank pain. BP 149/101, P - 84, T - 97.6. Pt given Ativan 2mg per MD.
--- NOTE | 2021-05-20 14:55 | NUR ---
Pt continued to work with Gayle and has arranged Tx at [facility] tomorrow. Pt needs to check in at [place] at 0900 tomorrow morning. MD in ER will do med clearance in AM prior to leaving. IV discontinued w/o issue. Pt reports decrease in anxiety r/t having a tx plan. Pt in bed sleeping.
--- NOTE | 2021-05-20 18:45 | NUR ---
ASSUMED CARE OF PT. PT HAS BEEN HANDED MEAL TRAY. HE IS CURRENTLY EATING HIS DINNER.
--- NOTE | 2021-05-20 19:10 | NUR ---
PT REPORTS FEELING 'SHAKY' AND ILL. SPOKE TO DR BANDA CONCERNING PT'S WITHDRAWAL SYMPTOMS. RECIEVED AN ORDER FOR [facility]
--- NOTE | 2021-05-20 19:32 | NUR ---
PT TOOK HIS MEDICATIONS.
--- NOTE | 2021-05-20 20:30 | NUR ---
PT REQUESTED TO MAKE A PHONE CALL TO FAMILY. AND THEN FELL ASLEEP. PT ON HIS LEFT SIDE. EQUAL RISE AND FALL OF CHEST
--- NOTE | 2021-05-20 21:38 | NUR ---
PT SLEEPING COMFORTABLY. EQUAL RISE AND FALL OF CHEST.
--- NOTE | 2021-05-20 22:25 | NUR ---
PT SHIFTED ONTO HIS RIGHT SIDE. PT SLEEPING. EQUAL RISE AND FALL OF CHEST.
--- NOTE | 2021-05-20 23:25 | NUR ---
PT CONTINUES TO SLEEP COMFORTABLY. EQUAL RISE AND FALL OF CHEST.
--- NOTE | 2021-05-21 00:32 | NUR ---
PT SHIFTED POSITION AND CONTINUES TO SLEEP. EQUAL RISE AND FALL OF CHEST.
--- NOTE | 2021-05-21 01:30 | NUR ---
PT SLEEPING. EQUAL RISE AND FALL OF CHEST.
[2021-05-21] MEDS ORDERED: LORazepam 1 MG tablet PO ONE ×3 (01:55→08:05)
--- NOTE | 2021-05-21 02:00 | NUR ---
PT GOT UP FROM [facility], WALKED UP TO NURSING STATION, AND REPORTED THAT HE IS 'NOT FEELING WELL'. HE IS REQUESTING FOR ATIVAN FOR HIS ETOH WITHDRAWAL. I RETOOK HIS VITALS AND WILL TAKE TO ED PHYSICIAN.
--- NOTE | 2021-05-21 02:28 | NUR ---
RECIEVED ORDER FOR ATIVAN. PT MEDICATED AND NOW TRYING TO SLEEP AGAIN.
--- NOTE | 2021-05-21 03:12 | NUR ---
PT SLEEPING COMFORTABLY, EQUAL RISE AND FALL OF CHEST
--- NOTE | 2021-05-21 04:30 | NUR ---
PT SHIFTED POSITIONS IN BED AND CONTINUES TO COMFORTABLY SLEEP. EQUAL RISE AND FALL OF CHEST.
--- NOTE | 2021-05-21 05:14 | NUR ---
PT SHIFTED POSITIONS AND CONTINUES TO SLEEP COMFORTABLY. OCASSIONALLY AWAKENS WHEN SOMEONE WALKS NEAR HIM.
--- NOTE | 2021-05-21 05:59 | NUR ---
PT SLEEPING COMFORTABLY ON HIS LEFT SIDE. EQUAL RISE AND FALL OF CHEST.
--- NOTE | 2021-05-21 07:24 | NUR ---
Received pt. sleeping in bed, rr are even and unlabored.
[2021-05-21] MEDS ORDERED: DULO-31 PO (08:00)
[2021-05-21] MEDS: duloxetine 30mg CAPSULE.DR PO SCH (08:08)
--- NOTE | 2021-05-21 09:10 | NUR ---
Pt. having active alcohol withdrawal s/s AEB nausea, slight tremors, and A/TREJO. This was endorsed to Dr. Washington, received orders for Ativan 2mg. Dr. Washington also provided pt. a prescription of for Cymbalta and a medical clearance note for the [facility]. He was transported via taxi to [facility] at 0910. Belongings were returned to pt. and this keno writer / runner reviewed medications and paperwork, he reported understanding. Pt. was walked out accompanied by [employer] and [employer].
[2021-05-21 09:54] VITALS: BP 134/98
== END 2021-05-21 09:57 ==
LOC: ER 09:58
DX: R45.851 Suicidal ideations (principal); Z20.822 Contact with and (suspected) exposure to COVID-19; R10.9 Unspecified abdominal pain; F17.210 Nicotine dependence, cigarettes, uncomplicated; Z87.19 Personal history of other diseases of the digestive system; Z90.49 Acquired absence of other specified parts of digestive tract; Z98.84 Bariatric surgery status; Z72.89 Other problems related to lifestyle; Z79.899 Other long term (current) drug therapy; Z59.00 Homelessness unspecified
CPT/HCPCS: 36415; 80053; 80305; 80320; 81003; 83690; 84443; 85008; 85025; 87635; 96365; 96372; 99285; C9803; J1885; J2560; J3490; J7030

== ENCOUNTER 2021-05-21 10:33 | Emergency (ER) | payer MEDICAID ==
[~2021-05-21] VITALS: Ht 190.5 cm; Wt 143.2 kg
[~2021-05-21 10:33] MED LIST changes: -DEXL60CA3 PO; +DULO-31 PO; +DULO60CA59 PO; -FERR324T4 PO; -GABA-534 PO; -MULT-25 PO; -NICO-687 TD; -ONDA4TAB12 PO; -ONDA8TAB13 PO; -PANT-47 PO; -PANT40TA54 PO; -folic acid tablet PO; -thiamine tablet PO
[2021-05-21 11:09] VITALS: BP 139/99
== END 2021-05-21 12:29 | disposition home or self-care (01) ==
LOC: ER 10:35
DX: F10.20 Alcohol dependence, uncomplicated (principal); F32.9 Major depressive disorder, single episode, unspecified; Z90.49 Acquired absence of other specified parts of digestive tract; Z98.890 Other specified postprocedural states; Z72.89 Other problems related to lifestyle; Z79.899 Other long term (current) drug therapy; Y90.9 Presence of alcohol in blood, level not specified
CPT/HCPCS: 99281

== ENCOUNTER 2021-08-03 06:19 | Inpatient (IN) | payer MEDICAID, OTHER ==
[~2021-08-03] VITALS: Ht 190.5 cm; Wt 136.0 kg
[2021-08-03] MEDS ORDERED: normal saline 1000ML IV soln IVB ONE (06:30)
[2021-08-03] MEDS ORDERED: thiamine inj. 100 MG in normal saline 100ml IV soln 99 ML IV ONE (06:30)
[2021-08-03] MEDS ORDERED: phenobarbital inj 260 MG in normal saline 100ml IV soln 100 ML IV ONE (06:30)
[2021-08-03] MEDS ORDERED: magnesium 2GM in 50ml NS 50 ML IV ONE (06:30)
[2021-08-03] MEDS ORDERED: ondansetron/PF 4mg/2ml inj IV ONE ×2 (06:45→08:20)
[2021-08-03] MEDS ORDERED: pantoprazole 40MG/D5 100ML BAG 100 ML IV ONE (07:05)
[2021-08-03] MEDS ORDERED: pantoprazole 40MG/NS 100ML BAG 100 ML IV ONE (07:05)
[2021-08-03] MEDS ORDERED: famotidine/PF 10 mg/ml inj IV ONE (07:05)
[2021-08-03 07:19] LABS: HEMOGLOBIN 10.9 g/dl (14.0-17.9); WHITE BLOOD COUNT 4.5 X10'3 (4.5-11.0)
[2021-08-03 07:20] LABS: ALANINE AMINOTRANSFERASE 285 U/L (12-78); ALBUMIN/GLOBULIN RATIO 0.9 (1.1-1.5); ALKALINE PHOSPHATASE 125 IU/L (46-116); ANION GAP 13 (8-16); ASPARTATE AMINO TRANSFERASE 381 U/L (10-37); BILIRUBIN,TOTAL 1.6 MG/DL (0.1-1.0); BLOOD UREA NITROGEN 24 MG/DL (7-18); BUN/CREATININE RATIO 22.2 (5.4-32.0); CHLORIDE 101 MMOL/L (99-107); CREATININE 1.08 MG/DL (0.60-1.10); ETHANOL 0.201 GM/DL (0.0-0.010); GLUCOSE 130 MG/DL (70-104); MAGNESIUM 1.4 MG/DL (1.5-2.4); POTASSIUM 3.7 MMOL/L (3.5-5.1); SODIUM 139 MMOL/L (135-145); TOTAL CARBON DIOXIDE 24.7 MMOL/L (24-32); TOTAL PROTEIN 6.3 G/DL (6.4-8.2); eGFR 76 ML/MIN
[2021-08-03 07:21] LABS: HEMATOCRIT 33.9 % (42.0-52.0); MEAN CORPUSCULAR HEMOGLOBIN 26.1 PG (27.0-31.0); MEAN CORPUSCULAR HGB CONC 32.3 g/dL (33.0-36.5); MEAN CORPUSCULAR VOLUME 80.7 FL (78-98); MEAN PLATELET VOLUME 9.2 FL (7.4-10.4); PLATELET COUNT 122 X10'3 (140-440); RED CELL DISTRIBUTION WIDTH 23.2 % (11.5-14.5)
[2021-08-03 08:11] LABS: TOTAL CELLS COUNTED 100
[2021-08-03 08:12] LABS: ANISOCYTOSIS 3+; MICROCYTOSIS 1+; PLATELET ESTIMATE DECREASED
[2021-08-03 08:13] LABS: TARGET CELLS FEW
[2021-08-03] MEDS ORDERED: phenobarbital inj 130 MG in normal saline 100ml IV soln 100 ML IV ONE ×2 (08:20→09:40)
[2021-08-03] MEDS: morphine 4 MG/ML inj SYRINge IV PRN ×2 (08:39→10:02)
[2021-08-03 10:26] LABS: LIPASE 310 U/L (73-393)
--- NOTE | 2021-08-03 11:04 | NUR ---
PT. WAS TESTED FOR MRSA IN JANUARY OF 2021 AND IT WAS NEGATIVE. NO ISOLATION NEEDED
[2021-08-03] MEDS ORDERED: magnesium 4gm in 100ml NS 100 ML IV PRN (12:35)
[2021-08-03] MEDS ORDERED: magnesium 2GM in 50ml NS 50 ML IV PRN (12:35)
[2021-08-03] MEDS ORDERED: potassium Cl 20 mEq SR tablet PO PRN ×2 (12:35)
[2021-08-03] MEDS ORDERED: PERFLUTREN PROTEIN-A MICROSPHR (Optison) 0.22 MG/ML 3ML VIAL IV ONE (12:35)
[2021-08-03] MEDS ORDERED: acetaminophen 325mg tablet PO PRN (12:35)
[2021-08-03] MEDS ORDERED: magnesium Cl slow-release 64mg tablet PO PRN (12:35)
[2021-08-03] MEDS ORDERED: potassium CL 10mEq/100ml bag 100 ML IV PRN (12:35)
[2021-08-03] MEDS ORDERED: LORA-269 PO (12:55)
[2021-08-03] MEDS: ondansetron/PF 4mg/2ml inj IV PRN ×2 (13:08→19:06)
--- NOTE | 2021-08-03 13:20 | NUR ---
Patient reports increased abdominal pain; hospitalist paged for pain medication order.
[2021-08-03 13:44] LABS: MAGNESIUM 1.6 MG/DL (1.5-2.4); POTASSIUM 4.3 MMOL/L (3.5-5.1)
[2021-08-03] MEDS ORDERED: morphine 2 MG/ML inj. syringe IV ONE ×2 (14:00→14:30)
[2021-08-03] MEDS: normal saline 1000ml 1,000 ML IV SCH ×2 (14:13→22:29)
--- NOTE | 2021-08-03 17:37 | NUR ---
Pt Annette Locke, Rm 3023 requests pain meds. He also needs withdrawal medication. He has severe tremors. (106 character message out of a maximum of 240)
[2021-08-03 18:00] VITALS: BP 132/87
[2021-08-03] MEDS ORDERED: haloperidol 5mg tablet PO PRN (18:45)
[2021-08-03] MEDS ORDERED: haloperidol lactate 5mg/ml inj IM PRN (18:45)
[2021-08-03] MEDS: LORazepam 2 mg/ml vial IV PRN ×3 (19:06→22:28)
--- NOTE | 2021-08-03 19:15 | NUR ---
Patient having withdrawal symptoms with no prns. paged. Order for moderate withdrawal protocol.
--- NOTE | 2021-08-03 19:50 | NUR ---
Patient complaining of abdominal pain and having visual tremors. MD aware order morphine 2mg IV every 2 hours PRN
[2021-08-03] MEDS ORDERED: K and/or MAG REPLACEMENT MC SCH (20:00)
[2021-08-03] MEDS: morphine 2 MG/ML inj. syringe IV PRN ×2 (20:22→22:28)
[2021-08-03 22:00] VITALS: BP 150/80
[2021-08-04 02:00] VITALS: BP 154/105
[2021-08-04] MEDS: LORazepam 2 mg/ml vial IV PRN ×2 (02:05→05:19)
[2021-08-04] MEDS: morphine 2 MG/ML inj. syringe IV PRN ×3 (02:06→08:04)
[2021-08-04 06:00] VITALS: BP 145/94
[2021-08-04 06:08] LABS: BASOPHILS # (AUTO) 0.1 X10'3 (0-0.2); BASOPHILS % (AUTO) 1.3 % (0-1); EOSINOPHILS # (AUTO) 0.1 X10'3 (0-0.9); EOSINOPHILS % (AUTO) 1.8 % (0-6); HEMATOCRIT 29.9 % (42.0-52.0); HEMOGLOBIN 9.4 g/dl (14.0-17.9); LYMPHOCYTES # (AUTO) 1.1 X10'3 (1.1-4.8); LYMPHOCYTES % (AUTO) 15.9 % (21-51); MEAN CORPUSCULAR HEMOGLOBIN 25.9 PG (27.0-31.0); MEAN CORPUSCULAR HGB CONC 31.5 g/dL (33.0-36.5); MEAN CORPUSCULAR VOLUME 82.2 FL (78-98); MEAN PLATELET VOLUME 9.6 FL (7.4-10.4); MONOCYTES # (AUTO) 0.4 X10'3 (0-0.9); MONOCYTES % (AUTO) 5.7 % (2-12); NEUTROPHILS # (AUTO) 5.3 X10'3 (1.8-7.7); NEUTROPHILS % (AUTO) 75.3 % (42-75); PLATELET COUNT 96 X10'3 (140-440); RED BLOOD COUNT 3.63 X10'6 (4.70-6.10); RED CELL DISTRIBUTION WIDTH 23.1 % (11.5-14.5); WHITE BLOOD COUNT 7.1 X10'3 (4.5-11.0)
[2021-08-04 06:21] LABS: ALBUMIN 2.7 G/DL (3.4-5.0); ANION GAP 10 (8-16); BLOOD UREA NITROGEN 19 MG/DL (7-18); BUN/CREATININE RATIO 18.6 (5.4-32.0); CALCIUM 7.6 MG/DL (8.5-10.1); CHLORIDE 102 MMOL/L (99-107); CREATININE 1.02 MG/DL (0.60-1.10); GLUCOSE 103 MG/DL (70-104); LIPASE 273 U/L (73-393); MAGNESIUM 1.4 MG/DL (1.5-2.4); PHOSPHORUS 2.8 MG/DL (2.3-4.5); POTASSIUM 3.8 MMOL/L (3.5-5.1); SODIUM 137 MMOL/L (135-145); TOTAL CARBON DIOXIDE 25.2 MMOL/L (24-32); eGFR 81 ML/MIN
[2021-08-04 06:47] LABS: ANISOCYTOSIS 3+; HYPOCHROMASIA 1+; PLATELET ESTIMATE DECREASED; TARGET CELLS 1+
[2021-08-04 06:48] LABS: POLYCHROMASIA FEW; SCHISTOCYTES FEW; STOMATOCYTES 1+
--- NOTE | 2021-08-04 09:22 | NUR ---
Chucky Camara Rm 3025 wants to leave. He states: "I feel fine, I am not shaking anymore, so I want to go home."
--- NOTE | 2021-08-04 09:54 | NUR ---
Pt Chucky Bryant Rm 3027 left AMA
[2021-08-05] MEDS ORDERED: LORazepam 2 mg/ml vial IV PRN (18:45)
[2021-08-05] MEDS ORDERED: LORazepam 1 MG tablet PO PRN (18:45)
[2021-08-07] MEDS ORDERED: LORazepam 2 mg/ml vial IV PRN (18:45)
[2021-08-07] MEDS ORDERED: LORazepam 1 MG tablet PO PRN (18:45)
== END 2021-08-04 09:25 | disposition left against medical advice (07) | DRG 432 ==
LOC: ER 06:20 → ED HOLD 12:42 → EDBEDREQ 13:14 → PCU 3S 13:32
PROVIDERS: ADMIT Internal Medicine; ATTEND Internal Medicine
DX: K70.10 Alcoholic hepatitis without ascites (principal); K85.20 Alcohol induced acute pancreatitis without necrosis or infection; F10.230 Alcohol dependence with withdrawal, uncomplicated; K86.0 Alcohol-induced chronic pancreatitis; D63.8 Anemia in other chronic diseases classified elsewhere; F10.229 Alcohol dependence with intoxication, unspecified; K29.20 Alcoholic gastritis without bleeding; K29.80 Duodenitis without bleeding; Z53.29 Procedure and treatment not carried out because of patient's decision for other reasons; F32.A Depression, unspecified; K74.60 Unspecified cirrhosis of liver; Z98.84 Bariatric surgery status; Z90.49 Acquired absence of other specified parts of digestive tract
CPT/HCPCS: 36415; 74176; 80048; 80053; 80320; 83605; 83690; 83735; 84100; 84132; 85007; 85008; 85025; 85610; 87081; 93005; 93306; 96374; 99285; C9113; G0378; J2060; J2270; J2405; J2560; J3411; J3475; J3490; J7030

== ENCOUNTER 2021-08-06 19:51 | Emergency (ER) | payer SELFPAY ==
[~2021-08-06] VITALS: Ht 190.5 cm; Wt 320.0 kg
[~2021-08-06 19:51] MED LIST changes: -DULO-31 PO; +LORA-269 PO
[2021-08-06 20:14] LABS: BASOPHILS # (AUTO) 0.1 X10'3 (0-0.2); BASOPHILS % (AUTO) 1.3 % (0-1); EOSINOPHILS # (AUTO) 0.2 X10'3 (0-0.9); EOSINOPHILS % (AUTO) 3.2 % (0-6); HEMATOCRIT 27.2 % (42.0-52.0); HEMOGLOBIN 8.5 g/dl (14.0-17.9); LYMPHOCYTES # (AUTO) 1.2 X10'3 (1.1-4.8); MEAN CORPUSCULAR HEMOGLOBIN 26.1 PG (27.0-31.0); MEAN CORPUSCULAR HGB CONC 31.2 g/dL (33.0-36.5); MEAN CORPUSCULAR VOLUME 83.5 FL (78-98); MEAN PLATELET VOLUME 7.9 FL (7.4-10.4); MONOCYTES # (AUTO) 0.6 X10'3 (0-0.9); MONOCYTES % (AUTO) 9.3 % (2-12); NEUTROPHILS # (AUTO) 4.8 X10'3 (1.8-7.7); NEUTROPHILS % (AUTO) 69.2 % (42-75); PLATELET COUNT 112 X10'3 (140-440); RED BLOOD COUNT 3.26 X10'6 (4.70-6.10); RED CELL DISTRIBUTION WIDTH 23.6 % (11.5-14.5); WHITE BLOOD COUNT 6.9 X10'3 (4.5-11.0)
[2021-08-06] MEDS ORDERED: phenobarbital inj 260 MG in normal saline 100ml IV soln 98 ML IV SCH (20:30)
[2021-08-06] MEDS ORDERED: phenobarbital inj 260 MG in normal saline 100ml IV soln 98 ML IV ONE (20:30)
[2021-08-06 20:33] LABS: ALANINE AMINOTRANSFERASE 109 U/L (12-78); ALBUMIN 2.9 G/DL (3.4-5.0); ALKALINE PHOSPHATASE 118 IU/L (46-116); ANION GAP 11 (8-16); ASPARTATE AMINO TRANSFERASE 102 U/L (10-37); BILIRUBIN,TOTAL 1.1 MG/DL (0.1-1.0); BLOOD UREA NITROGEN 18 MG/DL (7-18); BUN/CREATININE RATIO 17.1 (5.4-32.0); CALCIUM 7.9 MG/DL (8.5-10.1); CHLORIDE 107 MMOL/L (99-107); CREATININE 1.05 MG/DL (0.60-1.10); GLUCOSE 102 MG/DL (70-104); LIPASE 214 U/L (73-393); POTASSIUM 3.8 MMOL/L (3.5-5.1); SODIUM 142 MMOL/L (135-145); TOTAL CARBON DIOXIDE 24.1 MMOL/L (24-32); TOTAL PROTEIN 5.9 G/DL (6.4-8.2); eGFR 79 ML/MIN
[2021-08-06] MEDS ORDERED: NALT50TA PO (21:04)
[2021-08-06 21:29] LABS: PLATELET ESTIMATE DECREASED
[2021-08-06 21:30] LABS: ANISOCYTOSIS 3+
[2021-08-06 21:31] LABS: SCHISTOCYTES FEW
[2021-08-06 21:34] LABS: HYPOCHROMASIA 1+
[2021-08-06 21:35] LABS: POLYCHROMASIA FEW; STOMATOCYTES FEW
[2021-08-06 22:12] VITALS: BP 137/98
[2021-08-07] MEDS ORDERED: phenobarbital inj 260 MG in normal saline 100ml IV soln 98 ML IV SCH (08:00)
== END 2021-08-06 22:15 | disposition home or self-care (01) ==
LOC: ER 19:52
DX: F10.230 Alcohol dependence with withdrawal, uncomplicated (principal); F32.9 Major depressive disorder, single episode, unspecified; Z87.19 Personal history of other diseases of the digestive system
CPT/HCPCS: 36415; 80053; 83690; 85008; 85025; 93005; 96365; 99284; J2560; J3490

== ENCOUNTER 2021-10-26 04:18 | Emergency (ER) | payer OTHER ==
[~2021-10-26] VITALS: Ht 188 cm; Wt 136.3 kg
[~2021-10-26 04:18] MED LIST changes: +NALT50TA PO
[2021-10-26] MEDS ORDERED: LORazepam 2 mg/ml vial IV ONE (04:45)
--- NOTE | 2021-10-26 05:00 | NUR ---
PT RESTLESS AND SHAKING. STATES CHEST PAIN IS 8/10
[2021-10-26 05:03] LABS: BASOPHILS % (AUTO) 0.9 % (0-1); EOSINOPHILS # (AUTO) 0.2 X10'3 (0-0.9); EOSINOPHILS % (AUTO) 3.8 % (0-6); HEMATOCRIT 32.3 % (42.0-52.0); HEMOGLOBIN 9.8 g/dl (14.0-17.9); LYMPHOCYTES # (AUTO) 0.7 X10'3 (1.1-4.8); LYMPHOCYTES % (AUTO) 13.1 % (21-51); MEAN CORPUSCULAR HEMOGLOBIN 19.1 PG (27.0-31.0); MEAN CORPUSCULAR HGB CONC 30.5 g/dL (33.0-36.5); MEAN CORPUSCULAR VOLUME 62.6 FL (78-98); MEAN PLATELET VOLUME 7.8 FL (7.4-10.4); MONOCYTES # (AUTO) 0.5 X10'3 (0-0.9); MONOCYTES % (AUTO) 9.1 % (2-12); NEUTROPHILS # (AUTO) 3.7 X10'3 (1.8-7.7); NEUTROPHILS % (AUTO) 73.1 % (42-75); PLATELET COUNT 255 X10'3 (140-440); RED BLOOD COUNT 5.16 X10'6 (4.70-6.10); RED CELL DISTRIBUTION WIDTH 21.1 % (11.5-14.5)
[2021-10-26 05:19] LABS: ALANINE AMINOTRANSFERASE 36 U/L (12-78); ALBUMIN 3.4 G/DL (3.4-5.0); ALKALINE PHOSPHATASE 60 IU/L (46-116); ANION GAP 11 (8-16); ASPARTATE AMINO TRANSFERASE 37 U/L (10-37); BILIRUBIN,TOTAL 0.4 MG/DL (0.1-1.0); BLOOD UREA NITROGEN 17 MG/DL (7-18); BUN/CREATININE RATIO 18.7 (5.4-32.0); CALCIUM 8.7 MG/DL (8.5-10.1); CHLORIDE 103 MMOL/L (99-107); CREATININE 0.91 MG/DL (0.60-1.10); GLUCOSE 111 MG/DL (70-104); POTASSIUM 3.7 MMOL/L (3.5-5.1); SODIUM 139 MMOL/L (135-145); TOTAL CARBON DIOXIDE 25.5 MMOL/L (24-32); TOTAL PROTEIN 6.8 G/DL (6.4-8.2); eGFR > 90 ML/MIN
[2021-10-26 05:31] LABS: PLATELET ESTIMATE NORMAL
[2021-10-26 05:33] LABS: ANISOCYTOSIS 3+; MICROCYTOSIS 2+
[2021-10-26 05:34] LABS: HYPOCHROMASIA 1+
--- NOTE | 2021-10-26 05:38 | NUR ---
MEDICATION GIVEN AND PT NOW SLEEPING COMFORTABLY
[2021-10-26] MEDS ORDERED: thiamine 100mg tablet PO ONE (06:30)
[2021-10-26] MEDS ORDERED: magnesium oxide 400mg tablet PO ONE (06:30)
[2021-10-26] MEDS ORDERED: folic acid 1mg tablet PO ONE (06:30)
[2021-10-26] MEDS ORDERED: CHLO25CA10 PO (06:45)
--- NOTE | 2021-10-26 06:46 | NUR ---
Pt states he drinks a 1/5 of vodka a day. Pt has tremors upon awakening and is c/o back and chest pain. MD notified.
--- NOTE | 2021-10-26 07:45 | NUR ---
Pt's tremors getting worse. Reminded MD about need for meds for withdrawl. Pt also c/o CP and back pain. MD notified.
[2021-10-26] MEDS ORDERED: diazepam 5mg tablet PO ONE ×2 (08:05→10:20)
[2021-10-26 08:35] LABS: ETHANOL 0.035 GM/DL (0.0-0.010)
--- NOTE | 2021-10-26 09:17 | NUR ---
Pt states tremors improved slightly. Awaiting 2nd Troponin, then pt re-eval
--- NOTE | 2021-10-26 09:27 | NUR ---
Troponin eta 15-20min per lab.
[2021-10-26 10:32] VITALS: BP 146/75
== END 2021-10-26 10:36 | disposition home or self-care (01) ==
LOC: ER 04:19
DX: F10.239 Alcohol dependence with withdrawal, unspecified (principal); I25.9 Chronic ischemic heart disease, unspecified; Y90.9 Presence of alcohol in blood, level not specified; F32.A Depression, unspecified; Z79.899 Other long term (current) drug therapy
CPT/HCPCS: 36415; 71045; 80053; 80320; 83880; 84484; 85008; 85025; 93005; 96374; 99285; J2060

== ENCOUNTER 2021-12-01 08:44 | Emergency (ER) | payer OTHER ==
[~2021-12-01] VITALS: Ht 190.5 cm; Wt 143.2 kg
[~2021-12-01 08:44] MED LIST changes: +CHLO25CA10 PO
[2021-12-01] MEDS ORDERED: LORazepam 2 mg/ml vial IV ONE ×2 (11:05→13:40)
[2021-12-01] MEDS ORDERED: famotidine/PF 10 mg/ml inj IV ONE (11:05)
[2021-12-01 11:41] LABS: BASOPHILS # (AUTO) 0.1 X10'3 (0-0.2); BASOPHILS % (AUTO) 1.4 % (0-1); EOSINOPHILS # (AUTO) 0.2 X10'3 (0-0.9); EOSINOPHILS % (AUTO) 2.7 % (0-6); HEMATOCRIT 32.4 % (42.0-52.0); LYMPHOCYTES # (AUTO) 1.3 X10'3 (1.1-4.8); LYMPHOCYTES % (AUTO) 21.4 % (21-51); MEAN CORPUSCULAR HGB CONC 30.7 g/dL (33.0-36.5); MEAN CORPUSCULAR VOLUME 61.8 FL (78-98); MEAN PLATELET VOLUME 8.6 FL (7.4-10.4); MONOCYTES # (AUTO) 0.5 X10'3 (0-0.9); MONOCYTES % (AUTO) 8.5 % (2-12); NEUTROPHILS # (AUTO) 3.9 X10'3 (1.8-7.7); PLATELET COUNT 363 X10'3 (140-440); RED BLOOD COUNT 5.25 X10'6 (4.70-6.10)
[2021-12-01 11:51] LABS: PLATELET ESTIMATE NORMAL
[2021-12-01 11:52] LABS: ANISOCYTOSIS 2+; MICROCYTOSIS 2+; SCHISTOCYTES FEW
[2021-12-01 11:53] LABS: HYPOCHROMASIA 1+; TEAR DROP CELLS FEW
[2021-12-01 12:24] LABS: ALANINE AMINOTRANSFERASE 52 U/L (12-78); ALBUMIN 3.5 G/DL (3.4-5.0); ALKALINE PHOSPHATASE 78 IU/L (46-116); ANION GAP 10 (8-16); ASPARTATE AMINO TRANSFERASE 63 U/L (10-37); BILIRUBIN,TOTAL 0.3 MG/DL (0.1-1.0); BLOOD UREA NITROGEN 19 MG/DL (7-18); BUN/CREATININE RATIO 20.2 (5.4-32.0); CALCIUM 8.2 MG/DL (8.5-10.1); CHLORIDE 104 MMOL/L (99-107); CREATININE 0.94 MG/DL (0.60-1.10); GLUCOSE 103 MG/DL (70-104); POTASSIUM 4.3 MMOL/L (3.5-5.1); SODIUM 141 MMOL/L (135-145); TOTAL CARBON DIOXIDE 27.5 MMOL/L (24-32); eGFR 89 ML/MIN
[2021-12-01 12:49] VITALS: BP 130/92
[2021-12-01] MEDS ORDERED: ondansetron/PF 4mg/2ml inj IV ONE (13:40)
[2021-12-01] MEDS ORDERED: CHLO25CA10 PO (13:47)
[2021-12-01] MEDS ORDERED: chlordiazePOXIDE 25mg capsule PO ONE (16:45)
== END 2021-12-01 17:17 | disposition home or self-care (01) ==
LOC: ER 08:44
DX: F10.239 Alcohol dependence with withdrawal, unspecified (principal); R00.2 Palpitations; Z87.19 Personal history of other diseases of the digestive system; Z90.49 Acquired absence of other specified parts of digestive tract; Z72.89 Other problems related to lifestyle; Z98.84 Bariatric surgery status; Z79.899 Other long term (current) drug therapy; Y90.9 Presence of alcohol in blood, level not specified
CPT/HCPCS: 36415; 80053; 85008; 85025; 96374; 96375; 96376; 99284; J2060; J2405; J3490; J7030

== ENCOUNTER 2022-02-08 11:28 | Emergency (ER) | payer MEDICAID ==
[~2022-02-08] VITALS: Ht 188 cm; Wt 150.0 kg
[2022-02-08 12:18] LABS: CLARITY,URINE CLEAR (Clear); COLOR,URINE YELLOW (Yellow); GLUCOSE, URINE NEGATIVE (Neg); KETONES,URINE NEGATIVE (Neg); LEUKOCYTE ESTERASE ,URINE NEGATIVE (Neg); NITRITES, URINE NEGATIVE (Neg); OCCULT BLOOD,URINE NEGATIVE (Neg); PROTEIN,URINE NEGATIVE (Neg); UROBILINOGEN,URINE 0.2 E.U/dL (0.2-1.0)
[2022-02-08 12:21] LABS: UA COLLECTION TYPE CLN CATCH MIDSTREAM
[2022-02-08 12:23] LABS: BASOPHILS # (AUTO) 0.1 X10'3 (0-0.2); BASOPHILS % (AUTO) 1.1 % (0-1); EOSINOPHILS # (AUTO) 0.1 X10'3 (0-0.9); HEMATOCRIT 34.6 % (42.0-52.0); HEMOGLOBIN 10.8 g/dl (14.0-17.9); LYMPHOCYTES # (AUTO) 1.7 X10'3 (1.1-4.8); LYMPHOCYTES % (AUTO) 23.9 % (21-51); MEAN CORPUSCULAR HEMOGLOBIN 20.9 PG (27.0-31.0); MEAN CORPUSCULAR HGB CONC 31.1 g/dL (33.0-36.5); MEAN CORPUSCULAR VOLUME 67.3 FL (78-98); MEAN PLATELET VOLUME 8.1 FL (7.4-10.4); MONOCYTES # (AUTO) 0.3 X10'3 (0-0.9); MONOCYTES % (AUTO) 4.3 % (2-12); NEUTROPHILS % (AUTO) 69.7 % (42-75); PLATELET COUNT 397 X10'3 (140-440); RED BLOOD COUNT 5.15 X10'6 (4.70-6.10); RED CELL DISTRIBUTION WIDTH 24.1 % (11.5-14.5); WHITE BLOOD COUNT 7.2 X10'3 (4.5-11.0)
[2022-02-08 12:32] LABS: ALANINE AMINOTRANSFERASE 44 U/L (12-78); ALKALINE PHOSPHATASE 72 IU/L (46-116); AMYLASE 45 U/L (25-115); ANION GAP 13 (8-16); ASPARTATE AMINO TRANSFERASE 31 U/L (10-37); BILIRUBIN,TOTAL 0.3 MG/DL (0.1-1.0); BLOOD UREA NITROGEN 14 MG/DL (7-18); BUN/CREATININE RATIO 14.1 (5.4-32.0); CALCIUM 8.5 MG/DL (8.5-10.1); CHLORIDE 105 MMOL/L (99-107); CREATININE 0.99 MG/DL (0.60-1.10); GLUCOSE 99 MG/DL (70-104); LIPASE < 50 U/L (73-393); POTASSIUM 4.4 MMOL/L (3.5-5.1); SODIUM 143 MMOL/L (135-145); TOTAL CARBON DIOXIDE 25.2 MMOL/L (24-32); eGFR 84 ML/MIN
[2022-02-08 12:43] LABS: ANISOCYTOSIS 3+; HYPOCHROMASIA 1+; MICROCYTOSIS 2+; PLATELET ESTIMATE NORMAL
[2022-02-08 12:44] LABS: ELLIPTOCYTES FEW; SCHISTOCYTES FEW; TEAR DROP CELLS FEW
[2022-02-08] MEDS ORDERED: normal saline 1000ML IV soln IVB ONE (13:15)
[2022-02-08] MEDS ORDERED: sucralfate 1 gm tablet PO ONE (13:15)
[2022-02-08] MEDS ORDERED: LIDOcaine Viscous 15ml cup MM ONE (13:15)
[2022-02-08] MEDS ORDERED: famotidine/PF 10 mg/ml inj IV ONE (13:15)
[2022-02-08] MEDS ORDERED: mag hydrox/Alum hydrox/simeth 30ml oral suspension PO ONE (13:15)
[2022-02-08] MEDS ORDERED: ketorolac trometh. 30mg/ml inj. IV ONE (13:15)
[2022-02-08] MEDS ORDERED: LORazepam 2 mg/ml vial IV ONE (13:15)
--- NOTE | 2022-02-08 13:54 | NUR ---
Verbal order obtained from DARIO Torres to change IV Ativan to PO.
[2022-02-08] MEDS ORDERED: LORazepam 1 MG tablet PO PRN (13:55)
[2022-02-08] MEDS ORDERED: HYDROcodone/acetaminophen 10/325mg tab PO ONE (14:40)
[2022-02-08 15:44] VITALS: BP 160/103
== END 2022-02-08 15:45 | disposition home or self-care (01) ==
LOC: ER 11:28
DX: K80.50 Calculus of bile duct without cholangitis or cholecystitis without obstruction (principal); Z90.49 Acquired absence of other specified parts of digestive tract
CPT/HCPCS: 36415; 76700; 80053; 81003; 82150; 83690; 85008; 85025; 96374; 96375; 99284; J1885; J3490; J7030

== ENCOUNTER 2022-04-19 12:52 | Emergency (ER) | payer MEDICAID ==
[~2022-04-19] VITALS: Ht 188 cm; Wt 140.0 kg
[2022-04-19 13:10] VITALS: BP 145/93
[2022-04-19 13:40] LABS: BASOPHILS # (AUTO) 0.1 X10'3 (0-0.2); BASOPHILS % (AUTO) 1.3 % (0-1); EOSINOPHILS % (AUTO) 0.5 % (0-6); HEMATOCRIT 30.9 % (42.0-52.0); HEMOGLOBIN 9.7 g/dl (14.0-17.9); LYMPHOCYTES # (AUTO) 1.1 X10'3 (1.1-4.8); LYMPHOCYTES % (AUTO) 12.4 % (21-51); MEAN CORPUSCULAR HGB CONC 31.4 g/dL (33.0-36.5); MEAN CORPUSCULAR VOLUME 63.7 FL (78-98); MEAN PLATELET VOLUME 8.9 FL (7.4-10.4); MONOCYTES # (AUTO) 0.9 X10'3 (0-0.9); MONOCYTES % (AUTO) 10.2 % (2-12); NEUTROPHILS # (AUTO) 6.9 X10'3 (1.8-7.7); NEUTROPHILS % (AUTO) 75.6 % (42-75); PLATELET COUNT 265 X10'3 (140-440); RED BLOOD COUNT 4.85 X10'6 (4.70-6.10); RED CELL DISTRIBUTION WIDTH 19.6 % (11.5-14.5); WHITE BLOOD COUNT 9.2 X10'3 (4.5-11.0)
[2022-04-19 13:52] LABS: ALANINE AMINOTRANSFERASE 37 U/L (12-78); ALBUMIN 3.7 G/DL (3.4-5.0); ALBUMIN/GLOBULIN RATIO 1.1 (1.1-1.5); ALKALINE PHOSPHATASE 91 IU/L (46-116); ANION GAP 9 (8-16); ASPARTATE AMINO TRANSFERASE 39 U/L (10-37); BILIRUBIN,TOTAL 0.5 MG/DL (0.1-1.0); BLOOD UREA NITROGEN 21 MG/DL (7-18); BUN/CREATININE RATIO 20.4 (5.4-32.0); CHLORIDE 99 MMOL/L (99-107); CREATININE 1.03 MG/DL (0.60-1.10); GLUCOSE 104 MG/DL (70-104); POTASSIUM 3.8 MMOL/L (3.5-5.1); SODIUM 134 MMOL/L (135-145); TOTAL CARBON DIOXIDE 26.2 MMOL/L (24-32); TOTAL PROTEIN 7.2 G/DL (6.4-8.2); eGFR 80 ML/MIN
[2022-04-19 14:13] LABS: ANISOCYTOSIS 2+; ELLIPTOCYTES FEW; HYPOCHROMASIA 1+; MICROCYTOSIS 2+; PLATELET ESTIMATE NORMAL
[2022-04-19] MEDS ORDERED: LORazepam 1 MG tablet PO ONE (14:15)
[2022-04-19] MEDS ORDERED: ibuprofen tablet 400 MG TABLET PO ONE (15:40)
== END 2022-04-19 15:43 ==
LOC: ER 12:52
DX: R07.89 Other chest pain (principal); Z90.49 Acquired absence of other specified parts of digestive tract
CPT/HCPCS: 36415; 71045; 80053; 83880; 84484; 85008; 85025; 93005; 99285

== ENCOUNTER 2022-05-02 20:00 | Emergency (ER) | payer MEDICAID ==
[~2022-05-02] VITALS: Ht 188 cm; Wt 145.4 kg
[2022-05-02 20:12] VITALS: BP 98/57
== END 2022-05-02 21:05 | disposition home or self-care (01) ==
LOC: ER 20:02
DX: Z00.00 Encounter for general adult medical examination without abnormal findings (principal); F10.129 Alcohol abuse with intoxication, unspecified; Y90.9 Presence of alcohol in blood, level not specified; Z90.49 Acquired absence of other specified parts of digestive tract
CPT/HCPCS: 70450; 99284

== ENCOUNTER 2022-10-08 20:04 | Emergency (ER) | payer MEDICAID ==
[~2022-10-08] VITALS: Ht 190.5 cm; Wt 136.4 kg
[2022-10-08 20:25] VITALS: BP 134/87
[2022-10-08] MEDS ORDERED: GABA300C PO (22:11)
[2022-10-08] MEDS ORDERED: ONDA4TAB12 PO (22:11)
[2022-10-08] MEDS ORDERED: ondansetron 4mg rapidly disintigrating tab PO ONE (22:15)
== END 2022-10-08 22:18 | disposition home or self-care (01) ==
LOC: ER 20:04
DX: F10.920 Alcohol use, unspecified with intoxication, uncomplicated (principal); F17.200 Nicotine dependence, unspecified, uncomplicated; F32.A Depression, unspecified; Y90.9 Presence of alcohol in blood, level not specified; Z90.49 Acquired absence of other specified parts of digestive tract; Z79.899 Other long term (current) drug therapy
CPT/HCPCS: 99283

== ENCOUNTER 2023-06-10 09:54 | Inpatient (IN) | payer MEDICAID ==
[~2023-06-10] VITALS: Ht 190.5 cm; Wt 136.4 kg
[~2023-06-10 09:54] MED LIST changes: +GABA300C PO; +ONDA4TAB12 PO
[2023-06-10] MEDS ORDERED: TETanus/Pertussis (Acell)/Diphther VAC/PF (Tdap-Adult) 0.5ml syringe IMVAC ONE (10:40)
[2023-06-10 11:19] LABS: BILIRUBIN,URINE NEGATIVE (Neg); CLARITY,URINE SLIGHTLY CLOUDY (Clear); COLOR,URINE YELLOW (Yellow); GLUCOSE, URINE NEGATIVE (Neg); KETONES,URINE NEGATIVE (Neg); LEUKOCYTE ESTERASE ,URINE NEGATIVE (Neg); NITRITES, URINE NEGATIVE (Neg); OCCULT BLOOD,URINE NEGATIVE (Neg); PH,URINE 5.5 (4.8-8.0); PROTEIN,URINE 30 mg/dl (Neg); UROBILINOGEN,URINE 0.2 E.U/dL (0.2-1.0)
[2023-06-10 11:21] LABS: UA COLLECTION TYPE CLN CATCH MIDSTREAM
[2023-06-10 11:26] LABS: URINE AMPHETAMINE SCREEN NEGATIVE (Neg); URINE BARBITUATE SCREEN NEGATIVE (Neg); URINE BENZODIAZEPINES SCREEN NEGATIVE (Neg); URINE CANNABINOID SCREEN NEGATIVE (Neg); URINE COCAINE SCREEN NEGATIVE (Neg); URINE METHADONE SCREEN NEGATIVE (Neg); URINE OPIATE SCREEN NEGATIVE (Neg); URINE PHENCYCLIDINE SCREEN NEGATIVE (Neg)
[2023-06-10 11:27] LABS: COARSE GRANULAR CAST 0-3 /LPF (NEGATIVE)
[2023-06-10] MEDS ORDERED: LORazepam 2 mg/ml vial IV ONE (11:30)
[2023-06-10 11:31] LABS: SQUAMOUS EPITHELIAL CELL,UR FEW /LPF (FEW); TRANSITIONAL EPI CELLS,URINE FEW /HPF
[2023-06-10 11:32] LABS: RBC,URINE 0-2 /HPF (0-2); WBC,URINE 0-4 /HPF (0-4)
[2023-06-10 11:34] LABS: MUCUS STRANDS FEW /LPF (Neg)
[2023-06-10 11:36] LABS: BACTERIA,URINE FEW /HPF (Neg)
[2023-06-10 11:42] LABS: HEMATOCRIT 45.4 % (42.0-52.0); HEMOGLOBIN 14.7 g/dl (14.0-17.9); MEAN CORPUSCULAR HEMOGLOBIN 24.5 PG (27.0-31.0); MEAN CORPUSCULAR HGB CONC 32.3 g/dL (33.0-36.5); MEAN CORPUSCULAR VOLUME 75.7 FL (78-98); PLATELET COUNT 328 X10'3 (140-440); RED BLOOD COUNT 5.99 X10'6 (4.70-6.10); RED CELL DISTRIBUTION WIDTH 17.8 % (11.5-14.5); WHITE BLOOD COUNT 6.4 X10'3 (4.5-11.0)
[2023-06-10] MEDS ORDERED: LORazepam 1 MG tablet PO ONE (11:45)
[2023-06-10 11:47] LABS: ALANINE AMINOTRANSFERASE 23 U/L (12-78); ALBUMIN 4.7 G/DL (3.4-5.0); ALKALINE PHOSPHATASE 113 IU/L (46-116); ANION GAP 18 (8-16); ASPARTATE AMINO TRANSFERASE 22 U/L (10-37); BILIRUBIN,TOTAL 0.3 MG/DL (0.1-1.0); BLOOD UREA NITROGEN 10 MG/DL (7-18); BUN/CREATININE RATIO 10.4 (10.0-20.0); CALCIUM 9.5 MG/DL (8.5-10.1); CHLORIDE 98 MMOL/L (99-107); CREATININE 0.96 MG/DL (0.60-1.10); ETHANOL 214 MG/DL (<10); GLUCOSE 126 MG/DL (70-104); POTASSIUM 4.5 MMOL/L (3.5-5.1); SODIUM 138 MMOL/L (135-145); TOTAL CARBON DIOXIDE 21.6 MMOL/L (24-32); TOTAL PROTEIN 9.2 G/DL (6.4-8.2); eCRCL 121 ML/MIN; eGFR 86 ML/MIN
[2023-06-10 11:53] LABS: ACETAMINOPHEN < 2.0 UG/ML (10-30)
[2023-06-10 11:55] LABS: SALICYLATE 3.6 MG/DL (4.0-20.0)
[2023-06-10 12:19] LABS: ANISOCYTOSIS 1+; HYPOCHROMASIA 1+; MICROCYTOSIS 1+; PLATELET ESTIMATE NORMAL; TOTAL CELLS COUNTED 100
[2023-06-10] MEDS ORDERED: normal saline 1000ml 1,000 ML IV ONE (12:55)
[2023-06-10] MEDS: LORazepam 1 MG tablet PO PRN ×2 (13:00→19:04)
[2023-06-10] MEDS ORDERED: diazepam inj 5 MG/ML inj. IV ONE (13:20)
[2023-06-10] MEDS ORDERED: thiamine 100mg/ml 2ml inj. IV ONE ×2 (13:20→13:40)
[2023-06-10] MEDS ORDERED: folic acid 1mg/0.2ml inj IV ONE (13:20)
[2023-06-10] MEDS ORDERED: magnesium 4gm in 100ml NS 100 ML IV PRN (13:40)
[2023-06-10] MEDS ORDERED: magnesium hydroxide 30ml (MOM) UD suspension PO PRN (13:40)
[2023-06-10] MEDS ORDERED: ondansetron/PF 4mg/2ml inj IV PRN (13:40)
[2023-06-10] MEDS ORDERED: potassium Cl 40MEQ/1/2NS 520ml 520 ML IV PRN (13:40)
[2023-06-10] MEDS ORDERED: mag hydrox/Alum hydrox/simeth 30ml oral suspension PO PRN (13:40)
[2023-06-10] MEDS ORDERED: acetaminophen 650mg rectal suppository RC PRN (13:40)
[2023-06-10] MEDS ORDERED: magnesium Cl slow-release 64mg tablet PO PRN (13:40)
[2023-06-10] MEDS ORDERED: magnesium 2GM in 50ml NS 50 ML IV PRN (13:40)
[2023-06-10] MEDS ORDERED: acetaminophen 325mg tablet PO PRN ×2 (13:40)
[2023-06-10] MEDS ORDERED: potassium Cl 20 mEq SR tablet PO PRN ×2 (13:40)
[2023-06-10] MEDS ORDERED: bisacodyl 10mg suppository rectal RC PRN (13:40)
[2023-06-10] MEDS ORDERED: phenobarbital inj 260 MG in normal saline 100ml IV soln 98 ML IV SCH (15:25)
[2023-06-10] MEDS ORDERED: magnesium 2GM in 50ml NS 50 ML IV ONE (15:30)
[2023-06-10] MEDS ORDERED: phenobarbital inj 260 MG in normal saline 100ml IV soln 98 ML IV ONE (15:35)
[2023-06-10] MEDS: normal saline 1000ml 1,000 ML IV SCH (16:00)
[2023-06-10] MEDS ORDERED: divalproex sod 125mg tablet.DR PO PRN (17:05)
[2023-06-10] MEDS: divalproex 250mg tablet, delayed-release PO PRN (17:49)
[2023-06-10 19:33] VITALS: BP 174/89; PULSE 102; RESP 16; TEMP 98.1; O2SAT 96
[2023-06-10] MEDS: cloNIDine 0.1 mg tablet PO PRN (19:39)
[2023-06-10] MEDS: haloperidol lactate 5mg/ml inj IM PRN (19:39)
[2023-06-10] MEDS: chlordiazePOXIDE 25mg capsule PO PRN (19:39)
[2023-06-10] MEDS: docusate sod 100mg capsule PO SCH (19:44)
[2023-06-10] MEDS: K and/or MAG REPLACEMENT MC SCH (19:44)
[2023-06-10 20:00] VITALS: RESP 18; O2SAT 96
[2023-06-10] MEDS: acetaminophen 325mg tablet PO PRN (20:23)
[2023-06-10] MEDS: temazepam 15mg capsule PO PRN ×2 (21:35→23:02)
[2023-06-10 22:00] VITALS: BP 140/79; PULSE 79; RESP 16; TEMP 98.1; O2SAT 94
[2023-06-10] MEDS: LORazepam 2 mg/ml vial IV PRN (22:56)
[2023-06-11] MEDS: normal saline 1000ml 1,000 ML IV SCH ×4 (02:02→21:21)
[2023-06-11] MEDS: cloNIDine 0.1 mg tablet PO PRN ×4 (04:41→20:07)
[2023-06-11] MEDS: chlordiazePOXIDE 25mg capsule PO PRN (04:41)
[2023-06-11] MEDS: haloperidol lactate 5mg/ml inj IM PRN ×2 (04:41→20:07)
[2023-06-11 06:00] VITALS: BP 149/96; PULSE 67; RESP 15; TEMP 98.4; O2SAT 95
[2023-06-11 07:02] LABS: BASOPHILS # (AUTO) 0.1 X10'3 (0-0.2); BASOPHILS % (AUTO) 1.3 % (0-1); EOSINOPHILS # (AUTO) 0.2 X10'3 (0-0.9); EOSINOPHILS % (AUTO) 2.8 % (0-6); HEMATOCRIT 34.3 % (42.0-52.0); HEMOGLOBIN 11.2 g/dl (14.0-17.9); LYMPHOCYTES # (AUTO) 1.5 X10'3 (1.1-4.8); LYMPHOCYTES % (AUTO) 27.6 % (21-51); MEAN CORPUSCULAR HEMOGLOBIN 24.6 PG (27.0-31.0); MEAN CORPUSCULAR HGB CONC 32.6 g/dL (33.0-36.5); MEAN CORPUSCULAR VOLUME 75.4 FL (78-98); MEAN PLATELET VOLUME 8.6 FL (7.4-10.4); MONOCYTES # (AUTO) 0.4 X10'3 (0-0.9); MONOCYTES % (AUTO) 8.2 % (2-12); NEUTROPHILS # (AUTO) 3.2 X10'3 (1.8-7.7); NEUTROPHILS % (AUTO) 60.1 % (42-75); PLATELET COUNT 204 X10'3 (140-440); RED BLOOD COUNT 4.55 X10'6 (4.70-6.10); RED CELL DISTRIBUTION WIDTH 17.2 % (11.5-14.5); WHITE BLOOD COUNT 5.4 X10'3 (4.5-11.0)
[2023-06-11 07:40] LABS: ANION GAP 9 (8-16); BLOOD UREA NITROGEN 18 MG/DL (7-18); BUN/CREATININE RATIO 22.8 (10.0-20.0); CALCIUM 8.8 MG/DL (8.5-10.1); CHLORIDE 100 MMOL/L (99-107); CREATININE 0.79 MG/DL (0.60-1.10); GLUCOSE 94 MG/DL (70-104); MAGNESIUM 2.2 MG/DL (1.5-2.4); SODIUM 138 MMOL/L (135-145); TOTAL CARBON DIOXIDE 29.5 MMOL/L (24-32); eCRCL 147 ML/MIN; eGFR > 90 ML/MIN
[2023-06-11 07:41] LABS: ALANINE AMINOTRANSFERASE 18 U/L (12-78); ALBUMIN 3.4 G/DL (3.4-5.0); ALKALINE PHOSPHATASE 78 IU/L (46-116); ASPARTATE AMINO TRANSFERASE 20 U/L (10-37); BILIRUBIN,TOTAL 0.8 MG/DL (0.1-1.0); TOTAL PROTEIN 6.8 G/DL (6.4-8.2)
[2023-06-11 08:00] VITALS: RESP 14; O2SAT 97
[2023-06-11] MEDS: docusate sod 100mg capsule PO SCH ×2 (08:00→20:00)
[2023-06-11] MEDS ORDERED: multivitamins, therapeutics tablet PO SCH (08:00)
[2023-06-11] MEDS: K and/or MAG REPLACEMENT MC SCH ×2 (08:00→20:00)
[2023-06-11] MEDS: haloperidol 5mg tablet PO PRN ×2 (08:40→15:57)
[2023-06-11] MEDS: multivitamins, therapeutics tablet PO SCH (08:40)
[2023-06-11] MEDS: nicotine 14mg patch - 24hr TD SCH (08:41)
[2023-06-11] MEDS ORDERED: FOLI1TAB27 PO (08:53)
[2023-06-11] MEDS ORDERED: THIA100T66 PO (08:53)
[2023-06-11] MEDS ORDERED: GABA600T13 PO (08:53)
[2023-06-11] MEDS ORDERED: LISI5TAB22 PO (08:53)
[2023-06-11] MEDS ORDERED: CHLO25CA10 (08:53)
[2023-06-11] MEDS ORDERED: DULO30CA52 PO (08:53)
[2023-06-11] MEDS ORDERED: HYDR-3927 (08:53)
[2023-06-11] MEDS ORDERED: BUPR1FIL3 (08:53)
[2023-06-11] MEDS: LORazepam 2 mg/ml vial IV PRN ×2 (09:13→15:57)
[2023-06-11] MEDS: divalproex 250mg tablet, delayed-release PO PRN ×2 (09:23→20:08)
[2023-06-11 10:00] VITALS: BP 124/76; PULSE 69; RESP 18; TEMP 97.9; O2SAT 99
[2023-06-11] MEDS: gabapentin 300mg capsule PO SCH ×2 (11:41→21:17)
[2023-06-11] MEDS: LORazepam 1 MG tablet PO PRN ×2 (11:41→15:36)
[2023-06-11] MEDS: buprenorphine/naloxone 8MG-2MG SUBlingual film SL SCH ×2 (11:42→21:17)
[2023-06-11 17:18] LABS: BASOPHILS # (AUTO) 0.1 X10'3 (0-0.2); EOSINOPHILS # (AUTO) 0.2 X10'3 (0-0.9); EOSINOPHILS % (AUTO) 3.1 % (0-6); HEMATOCRIT 34.5 % (42.0-52.0); HEMOGLOBIN 11.3 g/dl (14.0-17.9); LYMPHOCYTES # (AUTO) 1.2 X10'3 (1.1-4.8); LYMPHOCYTES % (AUTO) 22.3 % (21-51); MEAN CORPUSCULAR HEMOGLOBIN 24.8 PG (27.0-31.0); MEAN CORPUSCULAR HGB CONC 32.6 g/dL (33.0-36.5); MEAN CORPUSCULAR VOLUME 76.1 FL (78-98); MEAN PLATELET VOLUME 8.9 FL (7.4-10.4); MONOCYTES # (AUTO) 0.3 X10'3 (0-0.9); MONOCYTES % (AUTO) 6.3 % (2-12); NEUTROPHILS # (AUTO) 3.6 X10'3 (1.8-7.7); NEUTROPHILS % (AUTO) 67.3 % (42-75); PLATELET COUNT 205 X10'3 (140-440); RED BLOOD COUNT 4.53 X10'6 (4.70-6.10); RED CELL DISTRIBUTION WIDTH 17.2 % (11.5-14.5); WHITE BLOOD COUNT 5.3 X10'3 (4.5-11.0)
[2023-06-11 17:35] LABS: ALANINE AMINOTRANSFERASE 23 U/L (12-78); ALBUMIN 3.4 G/DL (3.4-5.0); ALBUMIN/GLOBULIN RATIO 0.9 (1.1-1.5); ALKALINE PHOSPHATASE 85 IU/L (46-116); ANION GAP 4 (8-16); ASPARTATE AMINO TRANSFERASE 18 U/L (10-37); BILIRUBIN,TOTAL 0.5 MG/DL (0.1-1.0); BLOOD UREA NITROGEN 13 MG/DL (7-18); BUN/CREATININE RATIO 17.6 (10.0-20.0); CALCIUM 8.9 MG/DL (8.5-10.1); CHLORIDE 101 MMOL/L (99-107); CREATININE 0.74 MG/DL (0.60-1.10); GLUCOSE 103 MG/DL (70-104); POTASSIUM 4.4 MMOL/L (3.5-5.1); SODIUM 134 MMOL/L (135-145); TOTAL CARBON DIOXIDE 28.6 MMOL/L (24-32); eCRCL 157 ML/MIN; eGFR > 90 ML/MIN
[2023-06-11 18:00] VITALS: BP 113/90; PULSE 73; RESP 13; TEMP 98.7; O2SAT 96
[2023-06-11 20:00] VITALS: RESP 13; O2SAT 96
[2023-06-11] MEDS: temazepam 15mg capsule PO PRN ×2 (21:17→22:02)
[2023-06-11 22:00] VITALS: BP 136/82; PULSE 77; RESP 15; TEMP 97.7; O2SAT 96
[2023-06-12] MEDS: LORazepam 1 MG tablet PO PRN ×3 (00:20→21:07)
[2023-06-12] MEDS: cloNIDine 0.1 mg tablet PO PRN (00:20)
[2023-06-12] MEDS: haloperidol lactate 5mg/ml inj IM PRN ×2 (03:34→14:55)
[2023-06-12 06:36] VITALS: BP 122/79; PULSE 78; RESP 17; TEMP 97.7; O2SAT 97
[2023-06-12 07:02] LABS: BASOPHILS # (AUTO) 0.1 X10'3 (0-0.2); BASOPHILS % (AUTO) 1.1 % (0-1); EOSINOPHILS # (AUTO) 0.2 X10'3 (0-0.9); EOSINOPHILS % (AUTO) 4.2 % (0-6); HEMATOCRIT 34.9 % (42.0-52.0); HEMOGLOBIN 11.1 g/dl (14.0-17.9); LYMPHOCYTES # (AUTO) 1.5 X10'3 (1.1-4.8); LYMPHOCYTES % (AUTO) 26.9 % (21-51); MEAN CORPUSCULAR HEMOGLOBIN 24.4 PG (27.0-31.0); MEAN CORPUSCULAR HGB CONC 31.9 g/dL (33.0-36.5); MEAN CORPUSCULAR VOLUME 76.5 FL (78-98); MEAN PLATELET VOLUME 8.8 FL (7.4-10.4); MONOCYTES # (AUTO) 0.4 X10'3 (0-0.9); MONOCYTES % (AUTO) 7.1 % (2-12); NEUTROPHILS # (AUTO) 3.3 X10'3 (1.8-7.7); NEUTROPHILS % (AUTO) 60.7 % (42-75); PLATELET COUNT 186 X10'3 (140-440); RED BLOOD COUNT 4.56 X10'6 (4.70-6.10); RED CELL DISTRIBUTION WIDTH 17.1 % (11.5-14.5); WHITE BLOOD COUNT 5.5 X10'3 (4.5-11.0)
[2023-06-12 07:19] LABS: ALANINE AMINOTRANSFERASE 24 U/L (12-78); ALBUMIN 3.4 G/DL (3.4-5.0); ALKALINE PHOSPHATASE 82 IU/L (46-116); ANION GAP 6 (8-16); ASPARTATE AMINO TRANSFERASE 19 U/L (10-37); BILIRUBIN,TOTAL 0.4 MG/DL (0.1-1.0); BLOOD UREA NITROGEN 12 MG/DL (7-18); BUN/CREATININE RATIO 17.9 (10.0-20.0); CHLORIDE 103 MMOL/L (99-107); CREATININE 0.67 MG/DL (0.60-1.10); GLUCOSE 97 MG/DL (70-104); MAGNESIUM 2.1 MG/DL (1.5-2.4); POTASSIUM 4.4 MMOL/L (3.5-5.1); SODIUM 137 MMOL/L (135-145); TOTAL PROTEIN 6.9 G/DL (6.4-8.2); eCRCL 173 ML/MIN; eGFR > 90 ML/MIN
[2023-06-12 07:45] VITALS: RESP 78; O2SAT 97
[2023-06-12] MEDS: K and/or MAG REPLACEMENT MC SCH ×2 (08:00→20:00)
[2023-06-12] MEDS: gabapentin 300mg capsule PO SCH ×3 (08:18→21:08)
[2023-06-12] MEDS: docusate sod 100mg capsule PO SCH ×2 (08:18→21:13)
[2023-06-12] MEDS: folic acid 1mg tablet PO SCH (08:19)
[2023-06-12] MEDS: buprenorphine/naloxone 8MG-2MG SUBlingual film SL SCH ×3 (08:19→21:09)
[2023-06-12] MEDS: nicotine 14mg patch - 24hr TD SCH (08:19)
[2023-06-12] MEDS: lisinopril 5mg tablet PO SCH (08:19)
[2023-06-12] MEDS: multivitamins, therapeutics tablet PO SCH (08:19)
[2023-06-12] MEDS: duloxetine 30mg CAPSULE.DR PO SCH (08:19)
[2023-06-12] MEDS: thiamine 100mg tablet PO SCH (08:19)
[2023-06-12] MEDS: normal saline 1000ml 1,000 ML IV SCH (08:25)
[2023-06-12] MEDS: LORazepam 2 mg/ml vial IV PRN ×2 (09:38→13:34)
[2023-06-12 11:13] VITALS: BP 127/84; PULSE 99; RESP 14; TEMP 98.3; O2SAT 96
[2023-06-12] MEDS: haloperidol 5mg tablet PO PRN (12:02)
[2023-06-12] MEDS: acetaminophen 325mg tablet PO PRN (14:13)
[2023-06-12] MEDS: divalproex 250mg tablet, delayed-release PO PRN (14:14)
[2023-06-12] MEDS ORDERED: OLANZapine 2.5MG tablet PO ONE (16:40)
[2023-06-12 18:00] VITALS: BP 134/80; PULSE 85; RESP 16; TEMP 98; O2SAT 97
[2023-06-12 20:00] VITALS: RESP 18; O2SAT 96
[2023-06-12] MEDS: OLANZAPINE 5 MG TABLET PO SCH (21:13)
[2023-06-12 22:00] VITALS: BP 130/79; PULSE 76; RESP 16; TEMP 98.9; O2SAT 98
[2023-06-12] MEDS: temazepam 15mg capsule PO PRN (23:24)
[2023-06-13] MEDS: normal saline 1000ml 1,000 ML IV SCH ×2 (00:40→11:40)
[2023-06-13 06:00] VITALS: BP 160/109; PULSE 79; RESP 14; TEMP 98.3; O2SAT 96
[2023-06-13 06:44] LABS: BASOPHILS # (AUTO) 0.1 X10'3 (0-0.2); BASOPHILS % (AUTO) 0.8 % (0-1); EOSINOPHILS # (AUTO) 0.3 X10'3 (0-0.9); EOSINOPHILS % (AUTO) 4.4 % (0-6); HEMATOCRIT 34.3 % (42.0-52.0); HEMOGLOBIN 11.1 g/dl (14.0-17.9); LYMPHOCYTES # (AUTO) 1.4 X10'3 (1.1-4.8); LYMPHOCYTES % (AUTO) 19.5 % (21-51); MEAN CORPUSCULAR HGB CONC 32.5 g/dL (33.0-36.5); MEAN CORPUSCULAR VOLUME 76.8 FL (78-98); MEAN PLATELET VOLUME 10.2 FL (7.4-10.4); MONOCYTES # (AUTO) 0.5 X10'3 (0-0.9); MONOCYTES % (AUTO) 6.5 % (2-12); NEUTROPHILS # (AUTO) 4.9 X10'3 (1.8-7.7); NEUTROPHILS % (AUTO) 68.8 % (42-75); PLATELET COUNT 179 X10'3 (140-440); RED BLOOD COUNT 4.46 X10'6 (4.70-6.10); RED CELL DISTRIBUTION WIDTH 17.4 % (11.5-14.5); WHITE BLOOD COUNT 7.1 X10'3 (4.5-11.0)
[2023-06-13 06:50] LABS: ALANINE AMINOTRANSFERASE 27 U/L (12-78); ALBUMIN 3.4 G/DL (3.4-5.0); ALBUMIN/GLOBULIN RATIO 0.9 (1.1-1.5); ALKALINE PHOSPHATASE 79 IU/L (46-116); ANION GAP 9 (8-16); BILIRUBIN,TOTAL 0.3 MG/DL (0.1-1.0); BLOOD UREA NITROGEN 13 MG/DL (7-18); BUN/CREATININE RATIO 17.8 (10.0-20.0); CALCIUM 8.9 MG/DL (8.5-10.1); CHLORIDE 102 MMOL/L (99-107); CREATININE 0.73 MG/DL (0.60-1.10); GLUCOSE 90 MG/DL (70-104); MAGNESIUM 1.9 MG/DL (1.5-2.4); SODIUM 137 MMOL/L (135-145); TOTAL CARBON DIOXIDE 26.2 MMOL/L (24-32); TOTAL PROTEIN 7.1 G/DL (6.4-8.2); eCRCL 159 ML/MIN; eGFR > 90 ML/MIN
[2023-06-13 06:52] LABS: ASPARTATE AMINO TRANSFERASE 30 U/L (10-37); POTASSIUM 4.3 MMOL/L (3.5-5.1)
[2023-06-13] MEDS: K and/or MAG REPLACEMENT MC SCH ×2 (07:47→20:00)
[2023-06-13] MEDS: nicotine 14mg patch - 24hr TD SCH (07:53)
[2023-06-13] MEDS: folic acid 1mg tablet PO SCH (07:54)
[2023-06-13] MEDS: OLANZAPINE 5 MG TABLET PO SCH ×2 (07:54→20:08)
[2023-06-13] MEDS: multivitamins, therapeutics tablet PO SCH (07:54)
[2023-06-13] MEDS: buprenorphine/naloxone 8MG-2MG SUBlingual film SL SCH ×3 (07:54→20:08)
[2023-06-13] MEDS: lisinopril 5mg tablet PO SCH (07:55)
[2023-06-13] MEDS: duloxetine 30mg CAPSULE.DR PO SCH (07:55)
[2023-06-13] MEDS: thiamine 100mg tablet PO SCH (07:55)
[2023-06-13] MEDS: gabapentin 300mg capsule PO SCH ×3 (07:55→20:08)
[2023-06-13] MEDS: LORazepam 1 MG tablet PO PRN ×6 (08:00→23:42)
[2023-06-13] MEDS: chlordiazePOXIDE 25mg capsule PO PRN ×3 (08:00→23:42)
[2023-06-13] MEDS: docusate sod 100mg capsule PO SCH ×2 (08:00→20:00)
[2023-06-13] MEDS ORDERED: olanzapine 10mg tablet PO SCH (08:00)
[2023-06-13] MEDS: haloperidol 5mg tablet PO PRN (09:39)
[2023-06-13 10:00] VITALS: BP 113/95; PULSE 84; RESP 18; TEMP 97.8; O2SAT 96
[2023-06-13 18:00] VITALS: BP 151/86; PULSE 67; RESP 16; TEMP 97.8; O2SAT 96
[2023-06-13 20:30] VITALS: RESP 18; O2SAT 96
[2023-06-13 22:00] VITALS: BP 136/85; PULSE 76; RESP 16; TEMP 98.8; O2SAT 94
[2023-06-13] MEDS: temazepam 15mg capsule PO PRN (23:42)
[2023-06-14] MEDS: diazepam inj 5 MG/ML inj. IV PRN ×2 (00:05→08:19)
[2023-06-14] MEDS: normal saline 1000ml 1,000 ML IV SCH ×2 (00:09→07:40)
[2023-06-14] MEDS: LORazepam 1 MG tablet PO PRN ×3 (05:13→09:51)
[2023-06-14] MEDS: buprenorphine/naloxone 8MG-2MG SUBlingual film SL SCH (06:48)
[2023-06-14] MEDS: nicotine 14mg patch - 24hr TD SCH (06:49)
[2023-06-14] MEDS: lisinopril 5mg tablet PO SCH (06:51)
[2023-06-14] MEDS: OLANZAPINE 5 MG TABLET PO SCH (06:51)
[2023-06-14] MEDS: multivitamins, therapeutics tablet PO SCH (06:52)
[2023-06-14] MEDS: thiamine 100mg tablet PO SCH (06:52)
[2023-06-14] MEDS: gabapentin 300mg capsule PO SCH (06:53)
[2023-06-14] MEDS: folic acid 1mg tablet PO SCH (06:54)
[2023-06-14] MEDS: chlordiazePOXIDE 25mg capsule PO PRN (06:54)
[2023-06-14] MEDS: docusate sod 100mg capsule PO SCH (06:57)
[2023-06-14 07:00] VITALS: BP 158/111; PULSE 89; RESP 16; TEMP 97.8; O2SAT 96
[2023-06-14 07:00] LABS: BASOPHILS # (AUTO) 0.1 X10'3 (0-0.2); BASOPHILS % (AUTO) 0.8 % (0-1); EOSINOPHILS # (AUTO) 0.2 X10'3 (0-0.9); EOSINOPHILS % (AUTO) 2.4 % (0-6); HEMATOCRIT 34.5 % (42.0-52.0); HEMOGLOBIN 11.2 g/dl (14.0-17.9); LYMPHOCYTES # (AUTO) 1.1 X10'3 (1.1-4.8); LYMPHOCYTES % (AUTO) 11.8 % (21-51); MEAN CORPUSCULAR HEMOGLOBIN 24.7 PG (27.0-31.0); MEAN CORPUSCULAR HGB CONC 32.4 g/dL (33.0-36.5); MEAN CORPUSCULAR VOLUME 76.3 FL (78-98); MEAN PLATELET VOLUME 9.1 FL (7.4-10.4); MONOCYTES # (AUTO) 0.6 X10'3 (0-0.9); MONOCYTES % (AUTO) 6.1 % (2-12); NEUTROPHILS # (AUTO) 7.2 X10'3 (1.8-7.7); NEUTROPHILS % (AUTO) 78.9 % (42-75); PLATELET COUNT 198 X10'3 (140-440); RED BLOOD COUNT 4.53 X10'6 (4.70-6.10); RED CELL DISTRIBUTION WIDTH 17.4 % (11.5-14.5); WHITE BLOOD COUNT 9.1 X10'3 (4.5-11.0)
[2023-06-14 07:22] LABS: ALANINE AMINOTRANSFERASE 25 U/L (12-78); ALBUMIN 3.6 G/DL (3.4-5.0); ALBUMIN/GLOBULIN RATIO 0.9 (1.1-1.5); ALKALINE PHOSPHATASE 77 IU/L (46-116); ANION GAP 9 (8-16); ASPARTATE AMINO TRANSFERASE 24 U/L (10-37); BILIRUBIN,TOTAL 0.3 MG/DL (0.1-1.0); BLOOD UREA NITROGEN 17 MG/DL (7-18); BUN/CREATININE RATIO 20.2 (10.0-20.0); CHLORIDE 102 MMOL/L (99-107); CREATININE 0.84 MG/DL (0.60-1.10); GLUCOSE 97 MG/DL (70-104); MAGNESIUM 1.9 MG/DL (1.5-2.4); POTASSIUM 4.2 MMOL/L (3.5-5.1); SODIUM 138 MMOL/L (135-145); TOTAL CARBON DIOXIDE 26.9 MMOL/L (24-32); TOTAL PROTEIN 7.5 G/DL (6.4-8.2); eCRCL 138 ML/MIN; eGFR > 90 ML/MIN
[2023-06-14] MEDS ORDERED: duloxetine 30mg CAPSULE.DR PO SCH (08:00)
[2023-06-14] MEDS: K and/or MAG REPLACEMENT MC SCH (08:00)
[2023-06-15] MEDS ORDERED: thiamine 100mg tablet PO SCH (08:00)
[2023-06-15] MEDS ORDERED: folic acid 1mg tablet PO SCH (08:00)
== END 2023-06-14 10:55 | disposition left against medical advice (07) | DRG 817 ==
LOC: ER 09:56 → ED HOLD 13:46 → EDBEDREQ 16:34 → ORTHO 4S 19:05
PROVIDERS: ADMIT Family Medicine; ATTEND Family Medicine
DX: T48.1X2A Poisoning by skeletal muscle relaxants [neuromuscular blocking agents], intentional self-harm, initial encounter (principal); F10.231 Alcohol dependence with withdrawal delirium; R45.851 Suicidal ideations; T43.592A Poisoning by other antipsychotics and neuroleptics, intentional self-harm, initial encounter; F32.9 Major depressive disorder, single episode, unspecified; G89.29 Other chronic pain; M54.50 Low back pain, unspecified; I10 Essential (primary) hypertension; Z20.822 Contact with and (suspected) exposure to COVID-19; F17.210 Nicotine dependence, cigarettes, uncomplicated; Z81.8 Family history of other mental and behavioral disorders; Z98.84 Bariatric surgery status; Z79.899 Other long term (current) drug therapy
CPT/HCPCS: 36415; 70450; 71045; 73030; 80053; 80305; 80320; 80329; 81001; 83735; 84145; 84484; 85007; 85025; 87081; 87811; 90715; 93005; 96360; 96361; 99285; A6258; G0378; J1630; J2060; J2405; J2560; J3360; J3411; J3475; J3490; J7030

== ENCOUNTER 2024-06-18 17:48 | Emergency (ER) | payer MEDICAID ==
[~2024-06-18] VITALS: Ht 190.5 cm; Wt 114.2 kg
[~2024-06-18 17:48] MED LIST changes: +BUPR1FIL3; +CHLO25CA10; +DULO30CA52 PO; +FOLI1TAB27 PO; +GABA-1405 PO; +HYDR-3927; +LISI5TAB22 PO; -NALT50TA PO; +NALT50TA5 PO; +ONDA-243 PO; -ONDA4TAB12 PO; +THIA100T66 PO
[2024-06-18 17:53] VITALS: BP 119/65; PULSE 70; O2SAT 98
[2024-06-18 19:01] LABS: BASOPHILS % (AUTO) 0.5 % (0-1); EOSINOPHILS # (AUTO) 0.2 X10'3 (0-0.9); EOSINOPHILS % (AUTO) 2.2 % (0-6); HEMATOCRIT 38.1 % (42.0-52.0); HEMOGLOBIN 12.2 g/dl (14.0-17.9); LYMPHOCYTES # (AUTO) 1.5 X10'3 (1.1-4.8); LYMPHOCYTES % (AUTO) 14.3 % (21-51); MEAN CORPUSCULAR HEMOGLOBIN 24.7 PG (27.0-31.0); MEAN CORPUSCULAR HGB CONC 32.1 g/dL (33.0-36.5); MEAN CORPUSCULAR VOLUME 76.8 FL (78-98); MEAN PLATELET VOLUME 9.2 FL (7.4-10.4); MONOCYTES # (AUTO) 0.9 X10'3 (0-0.9); MONOCYTES % (AUTO) 8.5 % (2-12); NEUTROPHILS % (AUTO) 74.5 % (42-75); PLATELET COUNT 206 X10'3 (140-440); RED BLOOD COUNT 4.96 X10'6 (4.70-6.10); RED CELL DISTRIBUTION WIDTH 17.8 % (11.5-14.5); WHITE BLOOD COUNT 10.7 X10'3 (4.5-11.0)
[2024-06-18] MEDS: normal saline 1000ml 1,000 ML IV ONE (19:33)
[2024-06-18 19:35] LABS: APTT 27 SECONDS (22-32); INR 1.1 INR; PROTHROMBIN TIME 11.3 SECONDS (9.0-12.0)
[2024-06-18 19:36] VITALS: RESP 18
[2024-06-18 19:47] LABS: ALANINE AMINOTRANSFERASE 15 U/L (12-78); ALBUMIN 3.5 G/DL (3.4-5.0); ALBUMIN/GLOBULIN RATIO 1.1 (1.1-1.5); ALKALINE PHOSPHATASE 76 IU/L (46-116); ANION GAP 6 (8-16); ASPARTATE AMINO TRANSFERASE 13 U/L (10-37); BILIRUBIN,TOTAL 0.3 MG/DL (0.1-1.0); BLOOD UREA NITROGEN 21 MG/DL (7-18); BUN/CREATININE RATIO 16.9 (10.0-20.0); CALCIUM 8.1 MG/DL (8.5-10.1); CHLORIDE 103 MMOL/L (99-107); CREATININE 1.24 MG/DL (0.60-1.10); GLUCOSE 98 MG/DL (70-104); POTASSIUM 4.3 MMOL/L (3.5-5.1); SODIUM 138 MMOL/L (135-145); TOTAL PROTEIN 6.7 G/DL (6.4-8.2); eCRCL 93 ML/MIN; eGFR 64 ML/MIN
[2024-06-18 19:49] LABS: ETHANOL < 10 MG/DL (<10); SALICYLATE 2.1 MG/DL (4.0-20.0)
[2024-06-18 19:59] LABS: ACETAMINOPHEN < 2.0 UG/ML (10-30)
[2024-06-18] MEDS ORDERED: acetaminophen 1,000mg/100ml IV 100 ML IV ONE (20:00)
[2024-06-18] MEDS ORDERED: ketorolac trometh 15mg/ml vial 15 MG/ML ML IV ONE (20:00)
[2024-06-18 21:05] VITALS: TEMP 97.5
== END 2024-06-18 21:11 | disposition left against medical advice (07) ==
LOC: ER 17:49
DX: R41.82 Altered mental status, unspecified (principal); R25.3 Fasciculation; F32.A Depression, unspecified; F10.90 Alcohol use, unspecified, uncomplicated; Z98.84 Bariatric surgery status; Z90.49 Acquired absence of other specified parts of digestive tract; Z98.890 Other specified postprocedural states; Y90.9 Presence of alcohol in blood, level not specified
CPT/HCPCS: 36415; 70450; 71045; 80053; 80320; 80329; 82140; 82948; 83605; 84145; 85025; 85610; 85730; 87040; 93005; 96360; 99291; J7030; 99285

== ENCOUNTER 2024-06-23 18:56 | Emergency (ER) | payer MEDICAID ==
[~2024-06-23] VITALS: Ht 190.5 cm; Wt 82.6 kg
[2024-06-23 19:01] VITALS: BP 127/91; PULSE 115; TEMP 97.9; O2SAT 94
[2024-06-23] MEDS: LORazepam 2 mg/ml vial IV ONE (20:09)
[2024-06-23] MEDS: acetaminophen 1,000mg/100ml IV 100 ML IV ONE (20:25)
[2024-06-23 20:32] LABS: BASOPHILS # (AUTO) 0.1 X10'3 (0-0.2); EOSINOPHILS # (AUTO) 0.3 X10'3 (0-0.9); EOSINOPHILS % (AUTO) 3.3 % (0-6); HEMATOCRIT 36.8 % (42.0-52.0); HEMOGLOBIN 11.9 g/dl (14.0-17.9); LYMPHOCYTES # (AUTO) 0.9 X10'3 (1.1-4.8); LYMPHOCYTES % (AUTO) 10.4 % (21-51); MEAN CORPUSCULAR HEMOGLOBIN 24.7 PG (27.0-31.0); MEAN CORPUSCULAR HGB CONC 32.3 g/dL (33.0-36.5); MEAN CORPUSCULAR VOLUME 76.6 FL (78-98); MEAN PLATELET VOLUME 9.4 FL (7.4-10.4); MONOCYTES # (AUTO) 0.8 X10'3 (0-0.9); MONOCYTES % (AUTO) 9.9 % (2-12); NEUTROPHILS # (AUTO) 6.3 X10'3 (1.8-7.7); NEUTROPHILS % (AUTO) 75.4 % (42-75); PLATELET COUNT 270 X10'3 (140-440); RED BLOOD COUNT 4.81 X10'6 (4.70-6.10); RED CELL DISTRIBUTION WIDTH 17.4 % (11.5-14.5); WHITE BLOOD COUNT 8.4 X10'3 (4.5-11.0)
[2024-06-23 20:46] LABS: ALANINE AMINOTRANSFERASE 18 U/L (12-78); ALBUMIN 3.9 G/DL (3.4-5.0); ALBUMIN/GLOBULIN RATIO 1.1 (1.1-1.5); ALKALINE PHOSPHATASE 86 IU/L (46-116); ANION GAP 10 (8-16); BILIRUBIN,TOTAL 0.5 MG/DL (0.1-1.0); BLOOD UREA NITROGEN 12 MG/DL (7-18); BUN/CREATININE RATIO 12.5 (10.0-20.0); CALCIUM 8.7 MG/DL (8.5-10.1); CHLORIDE 103 MMOL/L (99-107); CREATININE 0.96 MG/DL (0.60-1.10); GLUCOSE 89 MG/DL (70-104); SODIUM 139 MMOL/L (135-145); TOTAL CARBON DIOXIDE 25.7 MMOL/L (24-32); TOTAL PROTEIN 7.3 G/DL (6.4-8.2); eCRCL 117 ML/MIN; eGFR 86 ML/MIN
[2024-06-23 20:49] LABS: ASPARTATE AMINO TRANSFERASE 34 U/L (10-37); POTASSIUM 4.6 MMOL/L (3.5-5.1)
[2024-06-23 20:50] LABS: ETHANOL < 10 MG/DL (<10)
[2024-06-23 21:52] VITALS: RESP 20
[2024-06-23] MEDS: ketorolac trometh 15mg/ml vial 15 MG/ML ML IV ONE (21:52)
== END 2024-06-23 22:41 | disposition home or self-care (01) ==
LOC: ER 18:57
DX: R56.9 Unspecified convulsions (principal); M24.551 Contracture, right hip; F32.A Depression, unspecified; F10.90 Alcohol use, unspecified, uncomplicated; M54.50 Low back pain, unspecified; Z98.84 Bariatric surgery status; Z98.890 Other specified postprocedural states; Z90.49 Acquired absence of other specified parts of digestive tract; Y90.9 Presence of alcohol in blood, level not specified; W19.XXXA Unspecified fall, initial encounter; Y93.89 Activity, other specified; Y92.89 Other specified places as the place of occurrence of the external cause; Y99.8 Other external cause status
CPT/HCPCS: 36415; 70450; 72100; 73502; 80053; 80320; 85025; 96374; 96375; 99285; J0131; J1885; J2060; J7030

== ENCOUNTER 2024-09-14 16:37 | Emergency (ER) | payer MEDICAID ==
[~2024-09-14] VITALS: Ht 190.5 cm; Wt 105.5 kg
[2024-09-14] MEDS ORDERED: ketorolac trometh 15mg/ml vial 15 MG/ML ML IM ONE (17:20)
[2024-09-14 17:32] VITALS: BP 136/89; PULSE 82; O2SAT 95
[2024-09-14] MEDS: ketorolac trometh 30MG/ML vial 30 MG/ML VIAL IM ONE (17:51)
[2024-09-14 18:38] LABS: D-DIMER 0.25 MG/L FEU (0-0.50)
[2024-09-14] MEDS ORDERED: PRED20TA PO (18:48)
[2024-09-14] MEDS ORDERED: HYDR-3965 PO (18:48)
[2024-09-14 18:51] LABS: BASOPHILS % (AUTO) 0.9 % (0-1); EOSINOPHILS % (AUTO) 0.8 % (0-6); HEMATOCRIT 38.5 % (42.0-52.0); HEMOGLOBIN 12.5 g/dl (14.0-17.9); LYMPHOCYTES # (AUTO) 0.7 X10'3 (1.1-4.8); LYMPHOCYTES % (AUTO) 15.8 % (21-51); MEAN CORPUSCULAR HEMOGLOBIN 24.5 PG (27.0-31.0); MEAN CORPUSCULAR HGB CONC 32.5 g/dL (33.0-36.5); MEAN CORPUSCULAR VOLUME 75.4 FL (78-98); MEAN PLATELET VOLUME 8.9 FL (7.4-10.4); MONOCYTES # (AUTO) 0.6 X10'3 (0-0.9); MONOCYTES % (AUTO) 12.2 % (2-12); NEUTROPHILS # (AUTO) 3.3 X10'3 (1.8-7.7); NEUTROPHILS % (AUTO) 70.3 % (42-75); PLATELET COUNT 179 X10'3 (140-440); RED BLOOD COUNT 5.11 X10'6 (4.70-6.10); RED CELL DISTRIBUTION WIDTH 17.6 % (11.5-14.5); WHITE BLOOD COUNT 4.7 X10'3 (4.5-11.0)
[2024-09-14 18:56] VITALS: RESP 18; TEMP 98
[2024-09-14] MEDS: predniSONE 20 mg tablet PO ONE (18:57)
[2024-09-14 19:04] LABS: ALBUMIN 3.9 G/DL (3.4-5.0); ANION GAP 10 (8-16); BLOOD UREA NITROGEN 22 MG/DL (7-18); BUN/CREATININE RATIO 28.2 (10.0-20.0); CALCIUM 8.8 MG/DL (8.5-10.1); CHLORIDE 104 MMOL/L (99-107); CREATININE 0.78 MG/DL (0.60-1.10); GLUCOSE 79 MG/DL (70-104); SODIUM 136 MMOL/L (135-145); TOTAL CARBON DIOXIDE 21.6 MMOL/L (24-32); eCRCL 147 ML/MIN; eGFR > 90 ML/MIN
== END 2024-09-14 19:01 | disposition home or self-care (01) ==
LOC: ER 16:38
DX: R07.89 Other chest pain (principal); J45.909 Unspecified asthma, uncomplicated; F32.A Depression, unspecified; F10.90 Alcohol use, unspecified, uncomplicated; Y90.9 Presence of alcohol in blood, level not specified; Z90.49 Acquired absence of other specified parts of digestive tract; Z79.899 Other long term (current) drug therapy; Z98.890 Other specified postprocedural states
CPT/HCPCS: 36415; 71045; 80048; 85025; 85379; 96372; 99284; J1885; J7512

== ENCOUNTER 2024-09-15 16:16 | Emergency (ER) | payer MEDICAID ==
[~2024-09-15] VITALS: Ht 185.4 cm; Wt 67.5 kg
[~2024-09-15 16:16] MED LIST changes: +HYDR-3965 PO; +PRED20TA PO
[2024-09-15 16:22] VITALS: BP 178/98; PULSE 126; RESP 17; TEMP 98.2; O2SAT 97
== END 2024-09-15 18:16 | disposition home or self-care (01) ==
LOC: ER 16:16
DX: Z00.8 Encounter for other general examination (principal); M54.9 Dorsalgia, unspecified; Z98.84 Bariatric surgery status; Z90.49 Acquired absence of other specified parts of digestive tract
CPT/HCPCS: 99281